=== PATIENT | male | born 1965 | race African-American/Black ===

== ENCOUNTER 2016-12-11 10:05 | Emergency (ER) | payer OTHER ==
[~2016-12-11] VITALS: Ht 188 cm; Wt 96.0 kg
[~2016-12-11 10:05] MED LIST: COMBIH IH; LISI-661 PO; METF1000 PO; METF500T4 PO; NOCURR
[2016-12-11] MEDS ORDERED: ALBU8HFA IH (10:17)
[2016-12-11] MEDS ORDERED: IPRATROPIUM BROMIDE 0.5 MG/2.5 ML NEB SOLUTION NEB ONE (11:00)
[2016-12-11] MEDS ORDERED: ALBUTEROL SULFATE 5 MG/ML 20 ML NEB SOLN [BULK] NEB ONE (11:00)
[2016-12-11] MEDS ORDERED: 0.9% SODIUM CHLORIDE 5 ML NEB SOLUTION NEB ONE (11:02)
[2016-12-11 13:44] VITALS: BP 156/78
== END 2016-12-11 14:17 | disposition home or self-care (01) ==
LOC: EMS 10:06
DX: J18.9 Pneumonia, unspecified organism (principal); J45.909 Unspecified asthma, uncomplicated; E11.9 Type 2 diabetes mellitus without complications; I10 Essential (primary) hypertension
CPT/HCPCS: 71010; 82962; 94644; 99285; J7611

== ENCOUNTER 2017-02-12 16:07 | Emergency (ER) | payer OTHER ==
[~2017-02-12] VITALS: Ht 188 cm; Wt 90.9 kg
[~2017-02-12 16:07] MED LIST changes: +ALBU8HFA IH
[2017-02-12] MEDS ORDERED: BECL8.7A6 PUFF (16:17)
[2017-02-12 17:23] VITALS: BP 140/92
== END 2017-02-12 17:40 | disposition home or self-care (01) ==
LOC: EMS 16:13
DX: B35.3 Tinea pedis (principal); J45.909 Unspecified asthma, uncomplicated; E11.9 Type 2 diabetes mellitus without complications; I10 Essential (primary) hypertension
CPT/HCPCS: 82962; 99283

== ENCOUNTER 2017-05-13 15:51 | Emergency (ER) | payer OTHER ==
[~2017-05-13] VITALS: Ht 189.2 cm; Wt 95.5 kg
[~2017-05-13 15:51] MED LIST changes: -ALBU8HFA IH; +BECL8.7A6 PUFF; -METF1000 PO; -NOCURR
[2017-05-13 16:22] LABS: GLUCOSE,POINT OF CARE 111 MG/DL (70-110)
[2017-05-13 16:36] LABS: BASOPHILS % (AUTO) 4.4 % (0.0-2.0); EOSINOPHILS % (AUTO) 0.6 % (1.0-6.0); HEMATOCRIT 47.7 % (41-53); LYMPHOCYTES # (AUTO) 1.1 K/uL (1.0-4.8); LYMPHOCYTES % (AUTO) 33.4 % (22.0-44.0); MEAN CORPUSCULAR HEMOGLOBIN 32.2 pg (26.0-34.0); MEAN CORPUSCULAR HGB CONC 33.5 G/dL (31.0-37.0); MEAN CORPUSCULAR VOLUME 96 fL (80-100); MONOCYTES # (AUTO) 0.3 K/uL (0.1-1.0); MONOCYTES % (AUTO) 8.9 % (2.0-9.0); NEUTROPHILS # (AUTO) 1.7 K/uL (1.8-7.7); NEUTROPHILS % (AUTO) 52.7 % (40.0-70.0); PLATELET COUNT (AUTO) 169 K/uL (150-450); RED BLOOD CELL COUNT(AUTO) 4.95 MIL/uL (4.50-5.90); RED CELL DISTRIBUTION WIDTH 14.2 % (11.5-14.5); WHITE BLOOD COUNT (AUTO) 3.3 K/uL (4.5-11.0)
[2017-05-13 16:41] LABS: APPEARANCE,URINE CLEAR (CLEAR); GLUCOSE, URINE (UA) NEGATIVE (NEGATIVE); KETONES,URINE 15 mg/dL (NEGATIVE); LEUKOCYTE ESTERASE ,URINE NEGATIVE (NEGATIVE); OCCULT BLOOD,URINE SMALL (NEGATIVE); PROTEIN,URINE SEE CONFIRM (NEGATIVE)
[2017-05-13 16:42] LABS: ADD UA MICROSCOPIC YES
[2017-05-13 16:46] LABS: ANION GAP 8 mmol/L (8-16); CALCIUM, TOTAL 8.1 mg/dL (8.8-10.5); CARBON DIOXIDE 28 mmol/L (22-29); CHLORIDE 102 mmol/L (98-107); CREATININE 1.32 mg/dL (0.60-1.30); GLOMERULAR FILTR. RATE CALC > 60 mL/min (>60); POTASSIUM 3.6 mmol/L (3.5-5.1); SODIUM SERUM 138 mmol/L (136-145); UREA NITROGEN, BLOOD 14 mg/dL (7-18)
[2017-05-13 16:52] LABS: SULFOSALICYLIC ACID,URINE 3+ (Negative)
[2017-05-13 16:54] LABS: HYALINE CASTS, URINE 0-2 /LPF (None Seen)
[2017-05-13 16:55] LABS: SQUAMOUS EPITHELIAL CELL,UR Moderate /LPF (None Seen)
[2017-05-13 16:57] LABS: ALBUMIN 3.3 g/dL (3.4-5.0); BILIRUBIN,TOTAL 2.8 mg/dL (0.1-1.0); TOTAL PROTEIN, SERUM 7.6 g/dL (6.4-8.2)
[2017-05-13 17:20] LABS: ALANINE AMINOTRANSFERASE 3732 U/L (12-78); ASPARTATE AMINOTRANSFERASE 2950 U/L (15-37)
[2017-05-13] MEDS ORDERED: KETOROLAC TROMETHAMINE 30 MG/ML VIAL IVP ONE (20:00)
[2017-05-13] MEDS ORDERED: SODIUM CHLORIDE 0.9% 1,000 ML IV ONE (20:00)
[2017-05-13] MEDS ORDERED: ONDANSETRON HCL 4 MG/2 ML VIAL IVP ONE (20:15)
[2017-05-13 20:40] VITALS: BP 126/81
[2017-05-14 14:14] LABS: HEPATITIS Bs ANTIGEN SCREEN P Negative (Negative); HEPATITIS C AB SCREEN 0.1 s/co ratio (0.0-0.9)
[2017-05-15] MEDS ORDERED: KETO10TA2 PO (08:31)
[2017-05-15] MEDS ORDERED: ONDA4 PO (08:31)
[2017-05-15] MEDS ORDERED: ALBU8.5H IH (08:31)
== END 2017-05-13 20:46 | disposition home or self-care (01) ==
LOC: EMS 15:56
DX: E80.6 Other disorders of bilirubin metabolism (principal); E86.0 Dehydration; B15.9 Hepatitis A without hepatic coma; E11.9 Type 2 diabetes mellitus without complications; J45.909 Unspecified asthma, uncomplicated; I10 Essential (primary) hypertension
CPT/HCPCS: 36415; 80053; 80074; 81001; 82962; 83690; 85025; 87086; 87147; 96361; 96374; 96375; 99284; J1885; J2405; J7030

== ENCOUNTER 2017-07-15 04:40 | Emergency (ER) | payer OTHER ==
[~2017-07-15] VITALS: Ht 188 cm; Wt 95.5 kg
[~2017-07-15 04:40] MED LIST changes: +ALBU8.5H IH; -BECL8.7A6 PUFF; -COMBIH IH; +KETO10TA2 PO; +ONDA4 PO
[2017-07-15] MEDS ORDERED: SIMV-259 PO (04:55)
[2017-07-15] MEDS ORDERED: IPRATROPIUM BROMIDE 0.5 MG/2.5 ML NEB SOLUTION NEB ONE ×3 (05:30→06:30)
[2017-07-15] MEDS ORDERED: ALBUTEROL SULFATE 5 MG/ML 20 ML NEB SOLN [BULK] NEB ONE ×2 (05:30→06:30)
[2017-07-15] MEDS ORDERED: ALBUTEROL SULFATE 2.5 MG/0.5 ML NEB SOLUTION NEB ONE (05:31)
[2017-07-15] MEDS ORDERED: PredniSONE 20 MG TABLET PO ONE (06:30)
[2017-07-15 08:25] VITALS: BP 127/54
[2017-07-15] MEDS ORDERED: ALBUTEROL SULFATE HFA 90 MCG/PUFF 8 GM INHALER IH ONE (08:30)
== END 2017-07-15 08:19 | disposition home or self-care (01) ==
LOC: EMS 04:41
DX: J45.901 Unspecified asthma with (acute) exacerbation (principal); E11.9 Type 2 diabetes mellitus without complications; I10 Essential (primary) hypertension
CPT/HCPCS: 94644; 99285; J7512; J7611; J7613; 94640; J3535

== ENCOUNTER 2017-12-07 05:16 | Emergency (ER) | payer OTHER ==
[~2017-12-07] VITALS: Ht 193 cm; Wt 90.9 kg
[~2017-12-07 05:16] MED LIST changes: -ALBU8.5H IH; -KETO10TA2 PO; -LISI-661 PO; -ONDA4 PO; +SIMV-259 PO
[2017-12-07 05:27] LABS: GLUCOSE,POINT OF CARE 81 MG/DL (70-110)
[2017-12-07] MEDS ORDERED: CYCLOBENZAPRINE HCL 10 MG TABLET PO ONE (05:30)
[2017-12-07] MEDS ORDERED: LIDOCAINE HCL 5% TRANSDERMAL PATCH TD ONE (05:30)
[2017-12-07 05:58] VITALS: BP 140/80
== END 2017-12-07 05:57 | disposition home or self-care (01) ==
LOC: EMS 05:17
DX: S76.012A Strain of muscle, fascia and tendon of left hip, initial encounter (principal); E11.9 Type 2 diabetes mellitus without complications; J45.909 Unspecified asthma, uncomplicated; I10 Essential (primary) hypertension; Z79.899 Other long term (current) drug therapy; W18.39XA Other fall on same level, initial encounter; Y93.89 Activity, other specified; Y92.89 Other specified places as the place of occurrence of the external cause; Y99.8 Other external cause status
CPT/HCPCS: 82962; 99283

== ENCOUNTER 2017-12-11 23:02 | Emergency (ER) | payer OTHER ==
[~2017-12-11] VITALS: Ht 188 cm; Wt 92.0 kg
[2017-12-11] MEDS ORDERED: CYCL10TA7 PO (23:25)
[2017-12-11 23:27] LABS: GLUCOSE,POINT OF CARE 92 MG/DL (70-110)
[2017-12-12 01:10] VITALS: BP 135/81
[2017-12-12] MEDS ORDERED: KETOROLAC TROMETHAMINE 60 MG/2 ML VIAL IM ONE (01:15)
== END 2017-12-12 01:42 | disposition home or self-care (01) ==
LOC: EMS 23:05
DX: M25.552 Pain in left hip (principal); J45.909 Unspecified asthma, uncomplicated; E11.9 Type 2 diabetes mellitus without complications; I10 Essential (primary) hypertension
CPT/HCPCS: 82962; 96372; 99283; J1885

== ENCOUNTER 2018-07-03 04:45 | Emergency (ER) | payer OTHER ==
[~2018-07-03] VITALS: Ht 188 cm; Wt 88.6 kg
[~2018-07-03 04:45] MED LIST changes: +CYCL10TA7 PO; -METF500T4 PO; +METF500T6 PO
[2018-07-03 04:59] LABS: GLUCOSE,POINT OF CARE 111 MG/DL (70-110)
[2018-07-03 05:11] VITALS: BP 143/82
[2018-07-03] MEDS ORDERED: LIDOCAINE HCL 1%/EPI 1:200,000/PF 30 ML VIAL INJ ONE (05:45)
== END 2018-07-03 06:11 | disposition home or self-care (01) ==
LOC: EMS 04:47
DX: S01.01XA Laceration without foreign body of scalp, initial encounter (principal); M20.012 Mallet finger of left finger(s); J45.909 Unspecified asthma, uncomplicated; E11.9 Type 2 diabetes mellitus without complications; I10 Essential (primary) hypertension; F12.90 Cannabis use, unspecified, uncomplicated; Z79.84 Long term (current) use of oral hypoglycemic drugs; V19.9XXA Pedal cyclist (driver) (passenger) injured in unspecified traffic accident, initial encounter; Y93.89 Activity, other specified; Y92.89 Other specified places as the place of occurrence of the external cause; Y99.8 Other external cause status
CPT/HCPCS: 12002; 29130; 73130; 82962; 99284; J3490

== ENCOUNTER 2018-07-18 19:26 | Emergency (ER) | payer OTHER ==
[~2018-07-18] VITALS: Ht 188 cm; Wt 93.2 kg
[~2018-07-18 19:26] MED LIST changes: +METF-960 PO; -METF500T6 PO
[2018-07-18] MEDS ORDERED: ALBU8.5H8 IH (19:46)
[2018-07-18] MEDS ORDERED: AUD NEB (19:46)
[2018-07-18 19:53] LABS: GLUCOSE,POINT OF CARE 115 MG/DL (70-110)
[2018-07-18] MEDS ORDERED: TraMADol HCL 50 MG TABLET PO ONE (21:45)
[2018-07-18] MEDS ORDERED: SULFAMETHOX/TRIMETH DS 800-160 MG/TABLET PO ONE (21:45)
[2018-07-18 22:00] VITALS: BP 143/89
== END 2018-07-18 22:07 | disposition home or self-care (01) ==
LOC: EMS 19:28
DX: L03.113 Cellulitis of right upper limb (principal); M79.89 Other specified soft tissue disorders; J45.909 Unspecified asthma, uncomplicated; E11.9 Type 2 diabetes mellitus without complications; I10 Essential (primary) hypertension; F12.90 Cannabis use, unspecified, uncomplicated; Z48.02 Encounter for removal of sutures; Z79.84 Long term (current) use of oral hypoglycemic drugs
CPT/HCPCS: 99284

== ENCOUNTER 2019-02-05 18:55 | Emergency (ER) | payer MEDICAID, OTHER ==
[~2019-02-05] VITALS: Ht 188 cm; Wt 86.4 kg
[~2019-02-05 18:55] MED LIST changes: +ALBU8.5H8 IH; +AUD NEB; -SIMV-259 PO
[2019-02-05] MEDS ORDERED: ALBUTEROL SULFATE 2.5 MG/0.5 ML NEB SOLUTION NEB ONE (19:00)
[2019-02-05] MEDS ORDERED: IPRATROPIUM BROMIDE 0.5 MG/2.5 ML NEB SOLUTION NEB ONE ×4 (19:00→22:15)
[2019-02-05] MEDS ORDERED: LEVALBUTEROL HCL 1.25 MG/0.5 ML NEB SOLUTION NEB ONE ×2 (19:15→22:15)
[2019-02-05 19:18] LABS: GLUCOSE,POINT OF CARE 137 MG/DL (70-110)
[2019-02-05 19:37] LABS: BASOPHILS % (AUTO) 0.3 % (0.0-2.0); EOSINOPHILS % (AUTO) 0.6 % (1.0-6.0); HEMATOCRIT 41.3 % (41-53); HEMOGLOBIN 14.1 g/dL (13.5-17.5); LYMPHOCYTES # (AUTO) 0.3 K/uL (1.0-4.8); LYMPHOCYTES % (AUTO) 4.4 % (22.0-44.0); MEAN CORPUSCULAR HEMOGLOBIN 33.1 pg (26.0-34.0); MEAN CORPUSCULAR HGB CONC 34.1 G/dL (31.0-37.0); MEAN CORPUSCULAR VOLUME 97 fL (80-100); MONOCYTES # (AUTO) 0.6 K/uL (0.1-1.0); MONOCYTES % (AUTO) 7.3 % (2.0-9.0); NEUTROPHILS # (AUTO) 6.7 K/uL (1.8-7.7); PLATELET COUNT (AUTO) 203 K/uL (150-450); RED BLOOD CELL COUNT(AUTO) 4.27 MIL/uL (4.50-5.90); RED CELL DISTRIBUTION WIDTH 13.8 % (11.5-14.5)
[2019-02-05 19:59] LABS: ANION GAP 11 mmol/L (8-16); CALCIUM, TOTAL 8.8 mg/dL (8.8-10.5); CARBON DIOXIDE 25 mmol/L (22-29); CHLORIDE 102 mmol/L (98-107); CREATININE 1.07 mg/dL (0.60-1.30); GLOMERULAR FILTR. RATE CALC > 60 mL/min (>60); GLUCOSE,RANDOM 119 mg/dL (70-110); POTASSIUM 3.8 mmol/L (3.5-5.1); SODIUM SERUM 138 mmol/L (136-145); UREA NITROGEN, BLOOD 13 mg/dL (7-18)
[2019-02-05 20:05] LABS: ALANINE AMINOTRANSFERASE 34 U/L (12-78); ALBUMIN 3.7 g/dL (3.4-5.0); ALKALINE PHOSPHATASE 76 U/L (46-116); ASPARTATE AMINOTRANSFERASE 25 U/L (15-37); NEUTROPHILS % (AUTO) 87.4 % (40.0-70.0); TOTAL PROTEIN, SERUM 7.4 g/dL (6.4-8.2)
[2019-02-05] MEDS ORDERED: MethylPREDNISolone SOD SUCC 125 MG/2 ML VIAL IVP ONE (20:15)
[2019-02-05 22:50] VITALS: BP 135/83
== END 2019-02-05 23:01 | disposition home or self-care (01) ==
LOC: EMS 18:57
DX: J45.909 Unspecified asthma, uncomplicated (principal); I10 Essential (primary) hypertension; E11.9 Type 2 diabetes mellitus without complications; F12.90 Cannabis use, unspecified, uncomplicated; Z79.84 Long term (current) use of oral hypoglycemic drugs
CPT/HCPCS: 36415; 71045; 80053; 82962; 84484; 85025; 93005; 94640; 96374; 99284; J2930

== ENCOUNTER 2020-08-23 18:32 | Emergency (ER) | payer MEDICAID ==
[~2020-08-23] VITALS: Ht 188 cm; Wt 106.8 kg
[2020-08-23] MEDS ORDERED: CYCLOBENZAPRINE HCL 10 MG TABLET PO ONE (19:15)
[2020-08-23 20:15] VITALS: BP 128/82
== END 2020-08-23 20:30 | disposition home or self-care (01) ==
LOC: EMS 18:32
DX: M54.5 Low back pain (principal)
CPT/HCPCS: 72100

== ENCOUNTER 2020-09-05 13:19 | Emergency (ER) | payer MEDICAID ==
[~2020-09-05] VITALS: Ht 188 cm; Wt 108.2 kg
[2020-09-05] MEDS ORDERED: ACETAMINOPHEN 500 MG TABLET PO ONE (14:15)
[2020-09-05] MEDS ORDERED: ALBUTEROL SULFATE HFA 90 MCG/PUFF 8 GM INHALER IH ONE (14:15)
[2020-09-05] MEDS ORDERED: IPRATROPIUM BROMIDE 0.5 MG/2.5 ML NEB SOLUTION NEB ONE (14:15)
[2020-09-05] MEDS ORDERED: ALBUTEROL SULFATE 2.5 MG/0.5 ML NEB SOLUTION NEB ONE ×2 (14:15→16:05)
[2020-09-05] MEDS ORDERED: MethylPREDNISolone SOD SUCC 125 MG/2 ML VIAL IVP ONE (14:15)
[2020-09-05] MEDS ORDERED: 0.9% SODIUM CHLORIDE 5 ML NEB SOLUTION NEB ONE ×2 (14:28→16:22)
[2020-09-05 14:54] LABS: BASOPHILS % (AUTO) 0.9 % (0.0-2.0); EOSINOPHILS % (AUTO) 8.7 % (1.0-6.0); HEMATOCRIT 41.2 % (41-53); HEMOGLOBIN 13.6 g/dL (13.5-17.5); LYMPHOCYTES # (AUTO) 1.7 K/uL (1.0-4.8); LYMPHOCYTES % (AUTO) 35.4 % (22.0-44.0); MEAN CORPUSCULAR HEMOGLOBIN 31.9 pg (26.0-34.0); MEAN CORPUSCULAR HGB CONC 32.9 G/dL (31.0-37.0); MEAN CORPUSCULAR VOLUME 97 fL (80-100); MONOCYTES # (AUTO) 0.5 K/uL (0.1-1.0); NEUTROPHILS # (AUTO) 2.1 K/uL (1.8-7.7); PLATELET COUNT (AUTO) 214 K/uL (150-450); RED BLOOD CELL COUNT(AUTO) 4.25 MIL/uL (4.50-5.90)
[2020-09-05 15:12] LABS: ANION GAP 9 mmol/L (8-16); CALCIUM, TOTAL 8.6 mg/dL (8.8-10.5); CARBON DIOXIDE 25 mmol/L (22-29); CHLORIDE 103 mmol/L (98-107); CREATININE 1.14 mg/dL (0.60-1.30); GLOMERULAR FILTR. RATE CALC > 60 mL/min (>60); GLUCOSE,RANDOM 91 mg/dL (70-110); POTASSIUM 4.4 mmol/L (3.5-5.1); SODIUM SERUM 137 mmol/L (136-145); UREA NITROGEN, BLOOD 16 mg/dL (7-18)
[2020-09-05 15:40] LABS: ALANINE AMINOTRANSFERASE 33 U/L (12-78); ALBUMIN 3.5 g/dL (3.4-5.0); ALKALINE PHOSPHATASE 63 U/L (46-116); ASPARTATE AMINOTRANSFERASE 25 U/L (15-37); BILIRUBIN,TOTAL 0.7 mg/dL (0.1-1.0); TOTAL PROTEIN, SERUM 7.1 g/dL (6.4-8.2)
[2020-09-05 15:41] LABS: CREATINE KINASE, TOTAL ONLY 1045 U/L (39-308)
[2020-09-05 15:46] LABS: COVID AG,FIA SOURCE NASOPHARYNGEAL
[2020-09-05 16:09] LABS: B-TYPE NATRIURETIC PEPTIDE 6 pg/mL (0-100)
[2020-09-05 16:15] VITALS: BP 145/88
[2020-09-05] MEDS ORDERED: SODIUM CHLORIDE 0.9% 1,000 ML IV ONE (16:15)
== END 2020-09-05 18:21 | disposition left against medical advice (07) ==
LOC: EMS 13:21
DX: J45.909 Unspecified asthma, uncomplicated (principal); M62.82 Rhabdomyolysis
CPT/HCPCS: 71045; 80053; 82550; 83880; 84484; 85025; 87426; 93005 ×2; 94640; 96361; 96374; 99285; J2930; J3535; 36415-L1; 36415-TC; J7613

== ENCOUNTER 2020-09-10 23:38 | Emergency (ER) | payer MEDICAID ==
[~2020-09-10] VITALS: Ht 188 cm; Wt 108.2 kg
[2020-09-11] MEDS ORDERED: PredniSONE 20 MG TABLET PO ONE (00:15)
[2020-09-11] MEDS ORDERED: ALBUTEROL SULFATE 5 MG/ML 20 ML NEB SOLN [BULK] NEB ONE ×2 (00:15→01:15)
[2020-09-11 00:26] LABS: BASOPHILS % (AUTO) 0.4 % (0.0-2.0); EOSINOPHILS % (AUTO) 7.1 % (1.0-6.0); HEMATOCRIT 39.6 % (41-53); HEMOGLOBIN 13.5 g/dL (13.5-17.5); LYMPHOCYTES # (AUTO) 1.6 K/uL (1.0-4.8); LYMPHOCYTES % (AUTO) 27.3 % (22.0-44.0); MEAN CORPUSCULAR HEMOGLOBIN 32.8 pg (26.0-34.0); MEAN CORPUSCULAR VOLUME 96 fL (80-100); MONOCYTES # (AUTO) 0.6 K/uL (0.1-1.0); MONOCYTES % (AUTO) 9.6 % (2.0-9.0); NEUTROPHILS # (AUTO) 3.3 K/uL (1.8-7.7); NEUTROPHILS % (AUTO) 55.6 % (40.0-70.0); PLATELET COUNT (AUTO) 199 K/uL (150-450); RED BLOOD CELL COUNT(AUTO) 4.11 MIL/uL (4.50-5.90); RED CELL DISTRIBUTION WIDTH 13.9 % (11.5-14.5)
[2020-09-11 00:34] LABS: ANION GAP 9 mmol/L (8-16); CALCIUM, TOTAL 8.7 mg/dL (8.8-10.5); CARBON DIOXIDE 27 mmol/L (22-29); CHLORIDE 102 mmol/L (98-107); CREATININE 1.28 mg/dL (0.60-1.30); GLOMERULAR FILTR. RATE CALC > 60 mL/min (>60); GLUCOSE,RANDOM 106 mg/dL (70-110); POTASSIUM 3.6 mmol/L (3.5-5.1); SODIUM SERUM 138 mmol/L (136-145); UREA NITROGEN, BLOOD 13 mg/dL (7-18)
[2020-09-11 00:39] LABS: ALANINE AMINOTRANSFERASE 39 U/L (12-78); ALBUMIN 3.4 g/dL (3.4-5.0); ALKALINE PHOSPHATASE 63 U/L (46-116); ASPARTATE AMINOTRANSFERASE 20 U/L (15-37); BILIRUBIN,TOTAL 0.4 mg/dL (0.1-1.0); TOTAL PROTEIN, SERUM 6.7 g/dL (6.4-8.2)
[2020-09-11] MEDS ORDERED: 0.9% SODIUM CHLORIDE 5 ML NEB SOLUTION NEB ONE (00:39)
[2020-09-11] MEDS ORDERED: 0.9% SODIUM CHLORIDE 15 ML NEB SOLUTION NEB ONE (01:06)
[2020-09-11] MEDS ORDERED: IPRATROPIUM BROMIDE 0.5 MG/2.5 ML NEB SOLUTION NEB ONE (01:15)
[2020-09-11 02:44] VITALS: BP 125/81
== END 2020-09-11 02:50 | disposition home or self-care (01) ==
LOC: EMS 23:38
DX: J45.901 Unspecified asthma with (acute) exacerbation (principal); E11.9 Type 2 diabetes mellitus without complications; I10 Essential (primary) hypertension; F12.90 Cannabis use, unspecified, uncomplicated; Z79.84 Long term (current) use of oral hypoglycemic drugs
CPT/HCPCS: 36415; 80053; 84484; 85025; 93005; 94640; 94644; 99285; J7512

== ENCOUNTER 2020-10-19 10:35 | Emergency (ER) | payer MEDICAID ==
[~2020-10-19] VITALS: Ht 185.4 cm; Wt 100.0 kg
[2020-10-19] MEDS ORDERED: LISI-660 PO (10:44)
[2020-10-19 10:56] LABS: GLUCOSE,POINT OF CARE 137 MG/DL (70-110)
[2020-10-19] MEDS ORDERED: METHOCARBAMOL 500 MG TABLET PO ONE (11:45)
[2020-10-19] MEDS ORDERED: KETOROLAC TROMETHAMINE 60 MG/2 ML VIAL IM ONE (11:45)
[2020-10-19 12:25] VITALS: BP 152/104
== END 2020-10-19 12:28 | disposition home or self-care (01) ==
LOC: EMS 10:37
DX: M54.42 Lumbago with sciatica, left side (principal); M79.605 Pain in left leg; J45.909 Unspecified asthma, uncomplicated; E11.9 Type 2 diabetes mellitus without complications; I10 Essential (primary) hypertension; F12.90 Cannabis use, unspecified, uncomplicated; Z79.84 Long term (current) use of oral hypoglycemic drugs
CPT/HCPCS: 82962; 96372; 99283; J1885

== ENCOUNTER 2021-01-11 07:30 | Emergency (ER) | payer MEDICAID, OTHER ==
[~2021-01-11] VITALS: Ht 188 cm; Wt 111.4 kg
[~2021-01-11 07:30] MED LIST changes: +LISI-892 PO
[2021-01-11 07:59] LABS: GLUCOSE,POINT OF CARE 108 MG/DL (70-110)
[2021-01-11] MEDS ORDERED: ALBUTEROL SULFATE 5 MG/ML 20 ML NEB SOLN [BULK] NEB ONE (08:00)
[2021-01-11] MEDS ORDERED: MethylPREDNISolone SOD SUCC 125 MG/2 ML VIAL IVP ONE (08:00)
[2021-01-11] MEDS ORDERED: IPRATROPIUM BROMIDE 0.5 MG/2.5 ML NEB SOLUTION NEB ONE (08:00)
[2021-01-11] MEDS ORDERED: PredniSONE 20 MG TABLET PO ONE (09:30)
[2021-01-11 09:41] VITALS: BP 143/91
[2021-01-11] MEDS ORDERED: ALBUTEROL SULFATE HFA 90 MCG/PUFF 8 GM INHALER IH ONE (10:15)
== END 2021-01-11 10:25 | disposition home or self-care (01) ==
LOC: EMS 07:36
DX: J45.901 Unspecified asthma with (acute) exacerbation (principal); F12.90 Cannabis use, unspecified, uncomplicated; E11.9 Type 2 diabetes mellitus without complications; I10 Essential (primary) hypertension
CPT/HCPCS: 71045; 82962; 93005; 94644; 99285; J2930; J7512; J3535; J7611

== ENCOUNTER 2021-02-24 06:17 | Emergency (ER) | payer OTHER ==
[~2021-02-24] VITALS: Ht 189.2 cm; Wt 109.5 kg
[2021-02-24 06:22] VITALS: BP 140/70
[2021-02-24] MEDS ORDERED: LIDOCAINE/PF 1% 2 ML VIAL IM ONE (07:00)
[2021-02-24] MEDS ORDERED: CefTRIAXone SODIUM 1 GM/VIAL IM ONE (07:00)
[2021-02-24] MEDS ORDERED: AZITHROMYCIN 500 MG TABLET PO ONE (07:00)
== END 2021-02-24 07:29 | disposition home or self-care (01) ==
LOC: EMS 06:20
DX: N34.2 Other urethritis (principal); I10 Essential (primary) hypertension; E11.9 Type 2 diabetes mellitus without complications; J45.909 Unspecified asthma, uncomplicated
CPT/HCPCS: 82962; 87491; 87591; 96372; 99283; A9575; J0696; J3490

== ENCOUNTER 2021-03-10 09:34 | Emergency (ER) | payer OTHER ==
[~2021-03-10] VITALS: Ht 188 cm; Wt 110.9 kg
[2021-03-10 10:38] VITALS: BP 131/83
[2021-03-10] MEDS ORDERED: ValACYclovir HCL 500 MG TABLET PO ONE (10:45)
== END 2021-03-10 11:15 | disposition home or self-care (01) ==
LOC: EMS 09:39
DX: B00.89 Other herpesviral infection (principal); E11.9 Type 2 diabetes mellitus without complications; I10 Essential (primary) hypertension; J45.909 Unspecified asthma, uncomplicated; F12.90 Cannabis use, unspecified, uncomplicated
CPT/HCPCS: 82962; 99283

== ENCOUNTER 2021-04-29 07:39 | Emergency (ER) | payer OTHER ==
[~2021-04-29] VITALS: Ht 188 cm; Wt 112.7 kg
[2021-04-29 11:00] VITALS: BP 141/103
== END 2021-04-29 11:16 | disposition home or self-care (01) ==
LOC: EMS 07:41
DX: L98.9 Disorder of the skin and subcutaneous tissue, unspecified (principal); M25.571 Pain in right ankle and joints of right foot; J45.909 Unspecified asthma, uncomplicated; E11.9 Type 2 diabetes mellitus without complications; I10 Essential (primary) hypertension; F12.90 Cannabis use, unspecified, uncomplicated; Z79.899 Other long term (current) drug therapy
CPT/HCPCS: 82962; 99283

== ENCOUNTER 2021-05-09 11:39 | Emergency (ER) | payer OTHER ==
[~2021-05-09] VITALS: Ht 188 cm; Wt 112.7 kg
[2021-05-09] MEDS ORDERED: ALBUTEROL SULFATE 5 MG/ML 20 ML NEB SOLN [BULK] NEB ONE (12:15)
[2021-05-09] MEDS ORDERED: PredniSONE 20 MG TABLET PO ONE (12:15)
[2021-05-09 12:49] LABS: BASOPHILS % (AUTO) 0.8 % (0.0-2.0); EOSINOPHILS % (AUTO) 5.8 % (1.0-6.0); HEMATOCRIT 40.7 % (41-53); HEMOGLOBIN 13.3 g/dL (13.5-17.5); LYMPHOCYTES # (AUTO) 1.2 K/uL (1.0-4.8); LYMPHOCYTES % (AUTO) 28.4 % (22.0-44.0); MEAN CORPUSCULAR HEMOGLOBIN 31.1 pg (26.0-34.0); MEAN CORPUSCULAR HGB CONC 32.7 G/dL (31.0-37.0); MEAN CORPUSCULAR VOLUME 95 fL (80-100); MONOCYTES # (AUTO) 0.4 K/uL (0.1-1.0); MONOCYTES % (AUTO) 10.2 % (2.0-9.0); NEUTROPHILS # (AUTO) 2.4 K/uL (1.8-7.7); NEUTROPHILS % (AUTO) 54.8 % (40.0-70.0); PLATELET COUNT (AUTO) 220 K/uL (150-450); RED BLOOD CELL COUNT(AUTO) 4.27 MIL/uL (4.50-5.90); RED CELL DISTRIBUTION WIDTH 13.9 % (11.5-14.5)
[2021-05-09 12:56] LABS: ANION GAP 9 mmol/L (8-16); CALCIUM, TOTAL 8.8 mg/dL (8.8-10.5); CARBON DIOXIDE 25 mmol/L (22-29); CHLORIDE 102 mmol/L (98-107); CREATININE 1.16 mg/dL (0.60-1.30); GLOMERULAR FILTR. RATE CALC > 60 mL/min (>60); GLUCOSE,RANDOM 129 mg/dL (70-110); POTASSIUM 3.7 mmol/L (3.5-5.1); SODIUM SERUM 136 mmol/L (136-145); UREA NITROGEN, BLOOD 16 mg/dL (7-18)
[2021-05-09 13:24] VITALS: BP 140/77
[2021-05-09] MEDS ORDERED: ALBUTEROL SULFATE HFA 90 MCG/PUFF 8 GM INHALER IH ONE (14:00)
== END 2021-05-09 14:31 | disposition home or self-care (01) ==
LOC: EMS 11:53
DX: J45.901 Unspecified asthma with (acute) exacerbation (principal); E11.9 Type 2 diabetes mellitus without complications; I10 Essential (primary) hypertension; F12.90 Cannabis use, unspecified, uncomplicated
CPT/HCPCS: 36415; 71045; 80048; 84484; 85025; 93005; 94640; 94644; 99285; J7512; J3535

== ENCOUNTER 2021-06-17 10:23 | Emergency (ER) | payer OTHER ==
[~2021-06-17] VITALS: Ht 188 cm; Wt 112.7 kg
[2021-06-17] MEDS ORDERED: FLUT1AER4 IH (14:29)
[2021-06-17] MEDS ORDERED: GABA-1181 PO (14:29)
[2021-06-17] MEDS ORDERED: MONT10TA32 PO (14:29)
[2021-06-17] MEDS ORDERED: ATOR10TA69 PO (14:29)
[2021-06-17] MEDS ORDERED: ACET-66 PO (14:29)
[2021-06-17] MEDS ORDERED: IBUPROFEN 600 MG TABLET PO ONE (14:30)
[2021-06-17 15:53] VITALS: BP 118/85
== END 2021-06-17 16:20 | disposition home or self-care (01) ==
LOC: EMS 10:23
DX: S80.01XA Contusion of right knee, initial encounter (principal); J45.909 Unspecified asthma, uncomplicated; E11.9 Type 2 diabetes mellitus without complications; I10 Essential (primary) hypertension; F12.90 Cannabis use, unspecified, uncomplicated; Z79.899 Other long term (current) drug therapy; Z79.84 Long term (current) use of oral hypoglycemic drugs; V19.9XXA Pedal cyclist (driver) (passenger) injured in unspecified traffic accident, initial encounter; Y93.89 Activity, other specified; Y92.89 Other specified places as the place of occurrence of the external cause; Y99.8 Other external cause status
CPT/HCPCS: 82962; 99283

== ENCOUNTER 2021-06-20 05:00 | Emergency (ER) | payer OTHER ==
[~2021-06-20] VITALS: Ht 188 cm; Wt 118.2 kg
[~2021-06-20 05:00] MED LIST changes: +ACET-66 PO; +ATOR10TA69 PO; +FLUT1AER4 IH; +GABA-1181 PO; +MONT10TA32 PO
[2021-06-20] MEDS ORDERED: IBUPROFEN 600 MG TABLET PO ONE (06:45)
[2021-06-20 07:35] VITALS: BP 134/79
== END 2021-06-20 07:39 | disposition home or self-care (01) ==
LOC: EMS 05:00
DX: S46.811A Strain of other muscles, fascia and tendons at shoulder and upper arm level, right arm, initial encounter (principal); E11.9 Type 2 diabetes mellitus without complications; I10 Essential (primary) hypertension; J45.909 Unspecified asthma, uncomplicated; F12.90 Cannabis use, unspecified, uncomplicated; W19.XXXA Unspecified fall, initial encounter; Y93.89 Activity, other specified; Y92.89 Other specified places as the place of occurrence of the external cause; Y99.8 Other external cause status
CPT/HCPCS: 71046; 99284

== ENCOUNTER 2021-06-24 09:13 | Emergency (ER) | payer OTHER ==
[~2021-06-24] VITALS: Ht 188 cm; Wt 118.2 kg
[2021-06-24 09:41] LABS: HEMATOCRIT 41.1 % (41-53); LYMPHOCYTES # (AUTO) 1.4 K/uL (1.0-4.8); NEUTROPHILS # (AUTO) 1.6 K/uL (1.8-7.7)
[2021-06-24 09:46] LABS: BASOPHILS % (AUTO) 0.6 % (0.0-2.0); EOSINOPHILS % (AUTO) 5.3 % (1.0-6.0); HEMOGLOBIN 13.5 g/dL (13.5-17.5); LYMPHOCYTES % (AUTO) 37.4 % (22.0-44.0); MEAN CORPUSCULAR HEMOGLOBIN 31.5 pg (26.0-34.0); MEAN CORPUSCULAR HGB CONC 32.9 G/dL (31.0-37.0); MEAN CORPUSCULAR VOLUME 96 fL (80-100); MONOCYTES # (AUTO) 0.5 K/uL (0.1-1.0); MONOCYTES % (AUTO) 12.6 % (2.0-9.0); NEUTROPHILS % (AUTO) 44.1 % (40.0-70.0); PLATELET COUNT (AUTO) 224 K/uL (150-450); RED BLOOD CELL COUNT(AUTO) 4.29 MIL/uL (4.50-5.90); RED CELL DISTRIBUTION WIDTH 13.7 % (11.5-14.5)
[2021-06-24 09:59] LABS: ANION GAP 6 mmol/L (8-16); CALCIUM, TOTAL 8.1 mg/dL (8.8-10.5); CARBON DIOXIDE 27 mmol/L (22-29); CHLORIDE 104 mmol/L (98-107); CREATININE 1.33 mg/dL (0.60-1.30); GLOMERULAR FILTR. RATE CALC > 60 mL/min (>60); GLUCOSE,RANDOM 114 mg/dL (70-110); POTASSIUM 3.9 mmol/L (3.5-5.1); SODIUM SERUM 137 mmol/L (136-145); UREA NITROGEN, BLOOD 15 mg/dL (7-18)
[2021-06-24 10:03] LABS: ALANINE AMINOTRANSFERASE 28 U/L (12-78); ALBUMIN 3.4 g/dL (3.4-5.0); ALKALINE PHOSPHATASE 68 U/L (46-116); ASPARTATE AMINOTRANSFERASE 22 U/L (15-37); BILIRUBIN,TOTAL 0.4 mg/dL (0.1-1.0); TOTAL PROTEIN, SERUM 7.2 g/dL (6.4-8.2)
[2021-06-24] MEDS ORDERED: IBUPROFEN 600 MG TABLET PO ONE (11:15)
[2021-06-24 11:26] VITALS: BP 147/94
== END 2021-06-24 11:34 | disposition home or self-care (01) ==
LOC: EMS 09:13
DX: S20.211A Contusion of right front wall of thorax, initial encounter (principal); E11.9 Type 2 diabetes mellitus without complications; I10 Essential (primary) hypertension; F12.90 Cannabis use, unspecified, uncomplicated; Z79.84 Long term (current) use of oral hypoglycemic drugs; Z79.899 Other long term (current) drug therapy; W05.1XXA Fall from non-moving nonmotorized scooter, initial encounter; Y93.89 Activity, other specified; Y92.89 Other specified places as the place of occurrence of the external cause; Y99.8 Other external cause status
CPT/HCPCS: 71045; 80053; 84484; 85025; 93005; 99285; 36415-L1; 36415-TC

== ENCOUNTER 2021-07-12 14:09 | Emergency (ER) | payer OTHER ==
[~2021-07-12] VITALS: Ht 188 cm; Wt 127.3 kg
[2021-07-12 16:17] LABS: BASOPHILS % (AUTO) 0.5 % (0.0-2.0); EOSINOPHILS % (AUTO) 4.2 % (1.0-6.0); HEMATOCRIT 40.7 % (41-53); HEMOGLOBIN 13.5 g/dL (13.5-17.5); LYMPHOCYTES # (AUTO) 1.6 K/uL (1.0-4.8); LYMPHOCYTES % (AUTO) 40.4 % (22.0-44.0); MEAN CORPUSCULAR HEMOGLOBIN 31.2 pg (26.0-34.0); MEAN CORPUSCULAR HGB CONC 33.1 G/dL (31.0-37.0); MEAN CORPUSCULAR VOLUME 94 fL (80-100); MONOCYTES # (AUTO) 0.5 K/uL (0.1-1.0); MONOCYTES % (AUTO) 13.2 % (2.0-9.0); NEUTROPHILS # (AUTO) 1.7 K/uL (1.8-7.7); NEUTROPHILS % (AUTO) 41.7 % (40.0-70.0); PLATELET COUNT (AUTO) 196 K/uL (150-450); RED BLOOD CELL COUNT(AUTO) 4.32 MIL/uL (4.50-5.90); RED CELL DISTRIBUTION WIDTH 13.9 % (11.5-14.5)
[2021-07-12 16:31] LABS: ANION GAP 8 mmol/L (8-16); CALCIUM, TOTAL 8.4 mg/dL (8.8-10.5); CARBON DIOXIDE 25 mmol/L (22-29); CHLORIDE 107 mmol/L (98-107); CREATININE 1.03 mg/dL (0.60-1.30); GLOMERULAR FILTR. RATE CALC > 60 mL/min (>60); GLUCOSE,RANDOM 82 mg/dL (70-110); SODIUM SERUM 140 mmol/L (136-145); UREA NITROGEN, BLOOD 13 mg/dL (7-18)
[2021-07-12 16:37] LABS: ALANINE AMINOTRANSFERASE 36 U/L (12-78); ALBUMIN 3.3 g/dL (3.4-5.0); ALKALINE PHOSPHATASE 70 U/L (46-116); ASPARTATE AMINOTRANSFERASE 24 U/L (15-37); BILIRUBIN,TOTAL 0.5 mg/dL (0.1-1.0); TOTAL PROTEIN, SERUM 7.2 g/dL (6.4-8.2)
[2021-07-12 16:44] LABS: B-TYPE NATRIURETIC PEPTIDE 14 pg/mL (0-100)
[2021-07-12 17:50] VITALS: BP 140/83
== END 2021-07-12 19:30 | disposition home or self-care (01) ==
LOC: EMS 14:12
DX: R60.0 Localized edema (principal); J45.909 Unspecified asthma, uncomplicated; E11.9 Type 2 diabetes mellitus without complications; I10 Essential (primary) hypertension; F12.90 Cannabis use, unspecified, uncomplicated; Z79.84 Long term (current) use of oral hypoglycemic drugs; Z79.899 Other long term (current) drug therapy
CPT/HCPCS: 80053; 82962; 83880; 85025; 93971; 99284

== ENCOUNTER 2021-09-03 12:02 | Emergency (ER) | payer OTHER ==
[~2021-09-03] VITALS: Ht 188 cm; Wt 115.9 kg
[2021-09-03 12:18] LABS: GLUCOSE,POINT OF CARE 107 MG/DL (70-110)
[2021-09-03 13:19] LABS: COVID AG,FIA SOURCE NASOPHARYNGEAL
[2021-09-03] MEDS ORDERED: ALBUTEROL SULFATE HFA 90 MCG/PUFF 8 GM INHALER IH ONE (13:45)
[2021-09-03 14:41] VITALS: BP 121/73
== END 2021-09-03 14:57 | disposition home or self-care (01) ==
LOC: EMS 12:02
DX: J40 Bronchitis, not specified as acute or chronic (principal); Z20.822 Contact with and (suspected) exposure to COVID-19
CPT/HCPCS: 71045; 82962; 87426; 94640; 99284; U0003; J3535

== ENCOUNTER 2021-11-17 01:58 | Emergency (ER) | payer OTHER ==
[~2021-11-17] VITALS: Ht 188 cm; Wt 115.9 kg
[~2021-11-17 01:58] MED LIST changes: +CYCL10TA16 PO; -CYCL10TA7 PO; +METF-1211 PO; -METF-960 PO; +MONT-40 PO; -MONT10TA32 PO
[2021-11-17] MEDS ORDERED: ALBUTEROL SULFATE HFA 90 MCG/PUFF 8 GM INHALER IH ONE (02:15)
[2021-11-17] MEDS ORDERED: PredniSONE 20 MG TABLET PO ONE (02:45)
[2021-11-17] MEDS ORDERED: IPRATROPIUM BROMIDE HFA 17 MCG/PUFF 12.9 GM INHALER IH ONE (02:45)
[2021-11-17 03:09] LABS: COVID AG,FIA SOURCE NASOPHARYNGEAL
[2021-11-17 03:34] LABS: INFLUENZA TYPE A NEGATIVE FOR TYPE A (NEGATIVE); INFLUENZA TYPE B NEGATIVE FOR TYPE B (NEGATIVE)
[2021-11-17 03:55] VITALS: BP 154/98
== END 2021-11-17 04:00 | disposition home or self-care (01) ==
LOC: EMS 02:00
DX: J45.901 Unspecified asthma with (acute) exacerbation (principal); E11.9 Type 2 diabetes mellitus without complications; I10 Essential (primary) hypertension; Z20.822 Contact with and (suspected) exposure to COVID-19; Z79.84 Long term (current) use of oral hypoglycemic drugs
CPT/HCPCS: 71045; 87426; 87804; 94640; 99284; J7512; U0003; J3535

== ENCOUNTER 2021-11-19 22:25 | Emergency (ER) | payer OTHER ==
[~2021-11-19] VITALS: Ht 188 cm; Wt 113.6 kg
[2021-11-19 22:26] VITALS: BP 156/94
== END 2021-11-20 00:20 | disposition home or self-care (01) ==
LOC: EMS 22:27
DX: Z20.822 Contact with and (suspected) exposure to COVID-19 (principal); J45.909 Unspecified asthma, uncomplicated; E11.9 Type 2 diabetes mellitus without complications; I10 Essential (primary) hypertension; Z79.899 Other long term (current) drug therapy; Z79.84 Long term (current) use of oral hypoglycemic drugs
CPT/HCPCS: 99283; U0003

== ENCOUNTER 2021-12-07 10:08 | Emergency (ER) | payer OTHER ==
[~2021-12-07] VITALS: Ht 188 cm; Wt 118.2 kg
[2021-12-07] MEDS ORDERED: IBUPROFEN 400 MG TABLET PO ONE (11:15)
[2021-12-07] MEDS ORDERED: ACETAMINOPHEN 325 MG TABLET PO ONE (11:15)
[2021-12-07] MEDS ORDERED: ALBUTEROL SULFATE HFA 90 MCG/PUFF 8 GM INHALER IH ONE (11:45)
[2021-12-07 11:54] LABS: COVID AG,FIA SOURCE NASOPHARYNGEAL
[2021-12-07 12:20] LABS: INFLUENZA TYPE A NEGATIVE FOR TYPE A (NEGATIVE); INFLUENZA TYPE B NEGATIVE FOR TYPE B (NEGATIVE)
[2021-12-07 12:23] VITALS: BP 138/71
== END 2021-12-07 13:04 | disposition home or self-care (01) ==
LOC: EMS 10:12
DX: U07.1 COVID-19 (principal); J45.909 Unspecified asthma, uncomplicated; I10 Essential (primary) hypertension; E11.9 Type 2 diabetes mellitus without complications; Z79.84 Long term (current) use of oral hypoglycemic drugs; Z79.899 Other long term (current) drug therapy
CPT/HCPCS: 87426; 87804; 94640; 99283; U0003; J3535

== ENCOUNTER 2022-05-27 00:24 | Emergency (ER) | payer OTHER ==
[~2022-05-27] VITALS: Ht 190.5 cm; Wt 113.6 kg
[2022-05-27] MEDS ORDERED: METR500 PO (01:59)
[2022-05-27 02:02] VITALS: BP 135/85
== END 2022-05-27 02:04 | disposition home or self-care (01) ==
LOC: EMS 00:25
DX: A59.9 Trichomoniasis, unspecified (principal); E11.9 Type 2 diabetes mellitus without complications; I10 Essential (primary) hypertension; J45.909 Unspecified asthma, uncomplicated
CPT/HCPCS: 87491; 87591; 99283

== ENCOUNTER 2022-07-07 14:02 | Emergency (ER) | payer OTHER ==
[~2022-07-07] VITALS: Ht 188 cm; Wt 104.5 kg
[~2022-07-07 14:02] MED LIST changes: +METR500 PO
[2022-07-07 14:17] VITALS: BP 136/74
== END 2022-07-07 14:35 | disposition home or self-care (01) ==
LOC: EMS 14:02
DX: T16.1XXA Foreign body in right ear, initial encounter (principal); Z87.821 Personal history of retained foreign body fully removed; J45.909 Unspecified asthma, uncomplicated; E11.9 Type 2 diabetes mellitus without complications; I10 Essential (primary) hypertension; G62.9 Polyneuropathy, unspecified; X58.XXXA Exposure to other specified factors, initial encounter; Y93.89 Activity, other specified; Y92.89 Other specified places as the place of occurrence of the external cause; Y99.8 Other external cause status
CPT/HCPCS: 69200; 99284; Z7502

== ENCOUNTER 2022-07-26 17:28 | Emergency (ER) | payer OTHER ==
[~2022-07-26] VITALS: Ht 188 cm; Wt 118.2 kg
[2022-07-26 18:07] LABS: GLUCOSE,POINT OF CARE 93 MG/DL (70-110)
[2022-07-26 20:08] VITALS: BP 131/81
== END 2022-07-26 20:44 | disposition home or self-care (01) ==
LOC: EMS 17:31
DX: R20.2 Paresthesia of skin (principal); E11.9 Type 2 diabetes mellitus without complications; I10 Essential (primary) hypertension; J45.909 Unspecified asthma, uncomplicated
CPT/HCPCS: 82962; 99282

== ENCOUNTER 2022-09-13 18:11 | Emergency (ER) | payer OTHER ==
[~2022-09-13] VITALS: Ht 188 cm; Wt 90.9 kg
[~2022-09-13 18:11] MED LIST changes: -METR500 PO; -MONT-40 PO
[2022-09-13 18:43] LABS: BASOPHILS % (AUTO) 0.5 % (0.0-2.0); EOSINOPHILS % (AUTO) 4.5 % (1.0-6.0); HEMATOCRIT 40.4 % (41-53); HEMOGLOBIN 13.2 g/dL (13.5-17.5); LYMPHOCYTES # (AUTO) 2.2 K/uL (1.0-4.8); LYMPHOCYTES % (AUTO) 41.4 % (22.0-44.0); MEAN CORPUSCULAR HEMOGLOBIN 31.7 pg (26.0-34.0); MEAN CORPUSCULAR HGB CONC 32.8 G/dL (31.0-37.0); MEAN CORPUSCULAR VOLUME 97 fL (80-100); MONOCYTES # (AUTO) 0.5 K/uL (0.1-1.0); MONOCYTES % (AUTO) 8.9 % (2.0-9.0); NEUTROPHILS # (AUTO) 2.4 K/uL (1.8-7.7); NEUTROPHILS % (AUTO) 44.7 % (40.0-70.0); PLATELET COUNT (AUTO) 216 K/uL (150-450); RED BLOOD CELL COUNT(AUTO) 4.17 MIL/uL (4.50-5.90); RED CELL DISTRIBUTION WIDTH 13.3 % (11.5-14.5)
[2022-09-13 18:54] LABS: ANION GAP 6 mmol/L (8-16); CARBON DIOXIDE 29 mmol/L (22-29); CHLORIDE 103 mmol/L (98-107); CREATININE 1.29 mg/dL (0.60-1.30); GLUCOSE,RANDOM 96 mg/dL (70-110); POTASSIUM 3.9 mmol/L (3.5-5.1); SODIUM SERUM 138 mmol/L (136-145); UREA NITROGEN, BLOOD 14 mg/dL (7-18)
[2022-09-13 18:55] LABS: CALCIUM, TOTAL 8.8 mg/dL (8.8-10.5); GLOMERULAR FILTR. RATE CALC > 60 mL/min (>60)
[2022-09-13 19:00] LABS: ALANINE AMINOTRANSFERASE 29 U/L (12-78); ALBUMIN 3.3 g/dL (3.4-5.0); ALKALINE PHOSPHATASE 56 U/L (46-116); ASPARTATE AMINOTRANSFERASE 22 U/L (15-37); BILIRUBIN,TOTAL 0.4 mg/dL (0.1-1.0)
[2022-09-13 22:00] VITALS: BP 130/88
[2022-09-13] MEDS ORDERED: IBUP-2070 PO (22:30)
[2022-09-13] MEDS ORDERED: IBUPROFEN 600 MG TABLET PO ONE (22:30)
== END 2022-09-13 22:45 | disposition home or self-care (01) ==
LOC: EMS 18:11
DX: R07.89 Other chest pain (principal); M79.18 Myalgia, other site; E11.9 Type 2 diabetes mellitus without complications; I10 Essential (primary) hypertension; J45.909 Unspecified asthma, uncomplicated
CPT/HCPCS: 71045; 80053; 84484; 85025; 93005; 99285; 36415-L1; 36415-TC

== ENCOUNTER 2022-11-17 17:14 | Emergency (ER) | payer OTHER ==
[~2022-11-17] VITALS: Ht 188 cm; Wt 122.7 kg
[~2022-11-17 17:14] MED LIST changes: -ACET-66 PO; -ALBU8.5H8 IH; -CYCL10TA16 PO; -FLUT1AER4 IH; -GABA-1181 PO; +IBUP-1492 PO
[2022-11-17] MEDS ORDERED: MethylPREDNISolone SOD SUCC 125 MG/2 ML VIAL IM ONE (17:30)
[2022-11-17] MEDS ORDERED: ALBUTEROL SULFATE 2.5 MG/0.5 ML NEB SOLUTION NEB ONE ×2 (17:30→19:00)
[2022-11-17] MEDS ORDERED: IPRATROPIUM BROMIDE 0.5 MG/2.5 ML NEB SOLUTION NEB ONE (17:30)
[2022-11-17 18:39] LABS: BASOPHILS % (AUTO) 1.5 % (0.0-2.0); EOSINOPHILS % (AUTO) 6.3 % (1.0-6.0); HEMATOCRIT 41.5 % (41-53); HEMOGLOBIN 13.7 g/dL (13.5-17.5); LYMPHOCYTES # (AUTO) 1.6 K/uL (1.0-4.8); LYMPHOCYTES % (AUTO) 38.4 % (22.0-44.0); MEAN CORPUSCULAR HGB CONC 33.1 G/dL (31.0-37.0); MEAN CORPUSCULAR VOLUME 97 fL (80-100); MONOCYTES # (AUTO) 0.4 K/uL (0.1-1.0); MONOCYTES % (AUTO) 9.6 % (2.0-9.0); NEUTROPHILS # (AUTO) 1.8 K/uL (1.8-7.7); NEUTROPHILS % (AUTO) 44.2 % (40.0-70.0); PLATELET COUNT (AUTO) 223 K/uL (150-450); RED BLOOD CELL COUNT(AUTO) 4.29 MIL/uL (4.50-5.90); RED CELL DISTRIBUTION WIDTH 13.6 % (11.5-14.5)
[2022-11-17 18:51] LABS: ANION GAP 8 mmol/L (8-16); CARBON DIOXIDE 26 mmol/L (22-29); CHLORIDE 103 mmol/L (98-107); CREATININE 1.18 mg/dL (0.60-1.30); GLUCOSE,RANDOM 87 mg/dL (70-110); POTASSIUM 4.6 mmol/L (3.5-5.1); SODIUM SERUM 137 mmol/L (136-145); UREA NITROGEN, BLOOD 14 mg/dL (7-18)
[2022-11-17 18:52] LABS: GLOMERULAR FILTR. RATE CALC > 60 mL/min (>60)
[2022-11-17 18:56] LABS: ALANINE AMINOTRANSFERASE 32 U/L (12-78); ALBUMIN 3.7 g/dL (3.4-5.0); ALKALINE PHOSPHATASE 68 U/L (46-116); ASPARTATE AMINOTRANSFERASE 23 U/L (15-37); BILIRUBIN,TOTAL 0.6 mg/dL (0.1-1.0); TOTAL PROTEIN, SERUM 7.7 g/dL (6.4-8.2)
[2022-11-17] MEDS ORDERED: ALBUTEROL SULFATE 5 MG/ML 20 ML NEB SOLN [BULK] NEB ONE (19:00)
[2022-11-17] MEDS ORDERED: ALBU8HFA IH (20:00)
[2022-11-17] MEDS ORDERED: GUAIFDM PO (20:00)
[2022-11-17] MEDS ORDERED: PRED-554 PO (20:00)
[2022-11-17] MEDS ORDERED: BECL10.62 IH (20:00)
[2022-11-17] MEDS ORDERED: AUD NEB (20:00)
[2022-11-17 20:12] VITALS: BP 145/93
== END 2022-11-17 20:13 | disposition home or self-care (01) ==
LOC: EMS 17:19
DX: J45.901 Unspecified asthma with (acute) exacerbation (principal); E11.40 Type 2 diabetes mellitus with diabetic neuropathy, unspecified; I10 Essential (primary) hypertension
CPT/HCPCS: 99285; 71045; 80053; 82962; 84484; 85025; 36415; 94640; 96372; 94644; J2930; J7613

== ENCOUNTER 2022-12-10 17:36 | Emergency (ER) | payer OTHER ==
[~2022-12-10] VITALS: Ht 188 cm; Wt 118.2 kg
[~2022-12-10 17:36] MED LIST changes: +ALBU8HFA IH; +BECL10.62 IH; +GUAIFDM PO; +PRED-554 PO
[2022-12-10 20:00] LABS: COVID AG,FIA SOURCE NASOPHARYNGEAL
[2022-12-10 20:20] LABS: INFLUENZA TYPE A NEGATIVE FOR TYPE A (NEGATIVE); INFLUENZA TYPE B NEGATIVE FOR TYPE B (NEGATIVE)
[2022-12-10] MEDS ORDERED: ALBUTEROL SULFATE 2.5 MG/0.5 ML NEB SOLUTION NEB ONE (20:30)
[2022-12-10] MEDS ORDERED: IPRATROPIUM BROMIDE 0.5 MG/2.5 ML NEB SOLUTION NEB ONE (20:30)
[2022-12-10] MEDS ORDERED: PredniSONE 20 MG TABLET PO ONE (20:30)
[2022-12-10] MEDS ORDERED: PRED-554 PO (21:07)
[2022-12-10] MEDS ORDERED: AZIT250T9 PO (21:08)
[2022-12-10 21:25] VITALS: BP 133/78
== END 2022-12-10 21:37 | disposition home or self-care (01) ==
LOC: EMS 17:52
DX: J06.9 Acute upper respiratory infection, unspecified (principal); J45.909 Unspecified asthma, uncomplicated; E11.9 Type 2 diabetes mellitus without complications; I10 Essential (primary) hypertension; G62.9 Polyneuropathy, unspecified; Z98.890 Other specified postprocedural states; Z20.822 Contact with and (suspected) exposure to COVID-19
CPT/HCPCS: 99284; 71046; 87426; 82962; 87804; 94640; J7512; J7613

== ENCOUNTER 2023-04-06 19:54 | Emergency (ER) | payer OTHER ==
[~2023-04-06] VITALS: Ht 188 cm; Wt 109.1 kg
[~2023-04-06 19:54] MED LIST changes: +ALBU18HF12 IH; -ALBU8HFA IH
[2023-04-06] MEDS ORDERED: KETOROLAC TROMETHAMINE 60 MG/2 ML VIAL IM ONE (21:00)
[2023-04-06] MEDS ORDERED: DEXAMETHASONE SOD PHOS 4 MG/ML 5 ML VIAL IM ONE (21:00)
[2023-04-06] MEDS ORDERED: HYDROGEN PEROXIDE 118 ML SOLUTION ONE (21:12)
[2023-04-06] MEDS ORDERED: DIPH25TA20 PO (21:19)
[2023-04-06] MEDS ORDERED: HYDR-4072 PO (21:19)
[2023-04-06] MEDS ORDERED: HYDR30CR3 TP (21:19)
[2023-04-06] MEDS ORDERED: PRED-554 PO (21:19)
[2023-04-06] MEDS ORDERED: IBUP-1554 PO (21:19)
[2023-04-06] MEDS ORDERED: DICL100G51 TP (22:01)
[2023-04-06] MEDS ORDERED: TRI2515C TP (22:06)
[2023-04-06 22:12] VITALS: BP 145/91
== END 2023-04-06 22:14 | disposition home or self-care (01) ==
LOC: EMS 19:55
DX: S86.912A Strain of unspecified muscle(s) and tendon(s) at lower leg level, left leg, initial encounter (principal); L25.2 Unspecified contact dermatitis due to dyes; J45.909 Unspecified asthma, uncomplicated; M17.12 Unilateral primary osteoarthritis, left knee; E11.9 Type 2 diabetes mellitus without complications; I10 Essential (primary) hypertension; Z98.890 Other specified postprocedural states; X58.XXXA Exposure to other specified factors, initial encounter; Y93.89 Activity, other specified; Y92.89 Other specified places as the place of occurrence of the external cause; Y99.8 Other external cause status
CPT/HCPCS: 99284; 29505; 82962; 73562; 96372; J1100; J1885

== ENCOUNTER 2023-06-13 13:37 | Emergency (ER) | payer OTHER ==
[~2023-06-13] VITALS: Ht 188 cm; Wt 113.6 kg
[~2023-06-13 13:37] MED LIST changes: +ALBU2.5V39 NEB; -AUD NEB; +DICL100G60 TP; +DIPH25CA85 PO; +HYDR-4072 PO; +HYDR30CR3 TP; -IBUP-1492 PO; +IBUP-1554 PO; +METH4TAB3 PO; -PRED-554 PO; +TRI2515C TP
[2023-06-13 13:41] VITALS: TEMP 98.3
[2023-06-13 14:11] LABS: GLUCOMETER DEV NAME(LOC) ERT.5
[2023-06-13] MEDS ORDERED: BACITRACIN 0.9 GM PACKET OINTMENT TP ONE (15:00)
[2023-06-13] MEDS ORDERED: LIDOCAINE 1% 10 ML VIAL ID ONE (15:00)
[2023-06-13 16:20] VITALS: BP 124/71; PULSE 98; RESP 16
== END 2023-06-13 17:12 | disposition home or self-care (01) ==
LOC: EMS 13:37
DX: S61.411A Laceration without foreign body of right hand, initial encounter (principal); J45.909 Unspecified asthma, uncomplicated; E11.40 Type 2 diabetes mellitus with diabetic neuropathy, unspecified; I10 Essential (primary) hypertension; Z98.890 Other specified postprocedural states; W26.0XXA Contact with knife, initial encounter; Y93.89 Activity, other specified; Y92.89 Other specified places as the place of occurrence of the external cause; Y99.8 Other external cause status
CPT/HCPCS: 99283; 82962; 73562; 12001; J3490

== ENCOUNTER 2023-06-15 14:59 | Emergency (ER) | payer OTHER ==
[~2023-06-15] VITALS: Ht 188 cm; Wt 113.6 kg
[2023-06-15 15:02] VITALS: BP 119/59; PULSE 102; RESP 16; TEMP 98.3
== END 2023-06-15 15:48 | disposition home or self-care (01) ==
LOC: EMS 14:59
DX: S61.411D Laceration without foreign body of right hand, subsequent encounter (principal); J45.909 Unspecified asthma, uncomplicated; I10 Essential (primary) hypertension; E11.40 Type 2 diabetes mellitus with diabetic neuropathy, unspecified; Z98.890 Other specified postprocedural states; X58.XXXD Exposure to other specified factors, subsequent encounter
CPT/HCPCS: 99281; Z7502

== ENCOUNTER 2023-06-24 10:49 | Emergency (ER) | payer OTHER ==
[~2023-06-24] VITALS: Ht 188 cm; Wt 113.6 kg
[2023-06-24 10:50] VITALS: BP 137/96; PULSE 92; RESP 18; TEMP 97.9
== END 2023-06-24 12:00 | disposition home or self-care (01) ==
LOC: EMS 10:49
DX: S60.921D Unspecified superficial injury of right hand, subsequent encounter (principal); J45.909 Unspecified asthma, uncomplicated; E11.40 Type 2 diabetes mellitus with diabetic neuropathy, unspecified; I10 Essential (primary) hypertension; Z48.02 Encounter for removal of sutures; Z98.890 Other specified postprocedural states; X58.XXXD Exposure to other specified factors, subsequent encounter
CPT/HCPCS: 99281; Z7502

== ENCOUNTER 2023-12-01 11:20 | Emergency (ER) | payer OTHER ==
[~2023-12-01] VITALS: Ht 188 cm; Wt 109.1 kg
[2023-12-01 11:25] VITALS: BP 139/80; PULSE 84; RESP 18; TEMP 97.9
[2023-12-01] MEDS ORDERED: TRIA15CR49 TP (13:13)
[2023-12-01] MEDS ORDERED: HYDR-4527 PO (13:13)
[2023-12-01] MEDS ORDERED: MONT-40 PO (13:13)
[2023-12-01] MEDS ORDERED: OMEP20CA12 PO (13:13)
[2023-12-01] MEDS ORDERED: ALBU0.8311 NEB (13:13)
[2023-12-01] MEDS ORDERED: IBUP-2077 PO (13:13)
[2023-12-01] MEDS ORDERED: DiphenhydrAMINE HCL 25 MG CAPSULE PO ONE (13:15)
[2023-12-01] MEDS ORDERED: MethylPREDNISolone SOD SUCC 125 MG/2 ML VIAL IM ONE (13:15)
[2023-12-01] MEDS ORDERED: DIPH50CA37 PO (13:20)
[2023-12-01] MEDS ORDERED: HYDR30CR39 TP (13:20)
[2023-12-01] MEDS ORDERED: PRED-554 PO (13:20)
[2023-12-01] MEDS ORDERED: CLOB15CR10 TP (13:20)
[2023-12-01] MEDS ORDERED: PERM60CR19 TP (13:20)
== END 2023-12-01 13:33 | disposition home or self-care (01) ==
LOC: EMS 11:20
DX: L25.9 Unspecified contact dermatitis, unspecified cause (principal); J45.909 Unspecified asthma, uncomplicated; I10 Essential (primary) hypertension; E11.40 Type 2 diabetes mellitus with diabetic neuropathy, unspecified; Z98.890 Other specified postprocedural states
CPT/HCPCS: 99283; 96372; J2930

== ENCOUNTER 2024-01-28 10:23 | Emergency (ER) | payer OTHER ==
[~2024-01-28] VITALS: Ht 188 cm; Wt 112.3 kg
[~2024-01-28 10:23] MED LIST changes: +ALBU0.8311 NEB; -ALBU2.5V39 NEB; +CLOB15CR10 TP; -DIPH25CA85 PO; +DIPH50CA37 PO; -GUAIFDM PO; -HYDR-4072 PO; +HYDR-4527 PO; -HYDR30CR3 TP; +HYDR30CR39 TP; -IBUP-1554 PO; +IBUP-2077 PO; -METH4TAB3 PO; +MONT-40 PO; +OMEP20CA12 PO; +PERM60CR19 TP; +PRED-554 PO; -TRI2515C TP; +TRIA15CR49 TP
[2024-01-28 10:28] VITALS: TEMP 98.5
[2024-01-28] MEDS: MethylPREDNISolone SOD SUCC 125 MG/2 ML VIAL IVP ONE (11:31)
[2024-01-28 11:35] LABS: BASOPHILS % (AUTO) 0.6 % (0.0-2.0); EOSINOPHILS % (AUTO) 6.9 % (1.0-6.0); HEMATOCRIT 41.5 % (41-53); HEMOGLOBIN 13.7 g/dL (13.5-17.5); LYMPHOCYTES % (AUTO) 28.8 % (22.0-44.0); MEAN CORPUSCULAR HEMOGLOBIN 31.8 pg (26.0-34.0); MEAN CORPUSCULAR HGB CONC 33.1 G/dL (31.0-37.0); MEAN CORPUSCULAR VOLUME 96 fL (80-100); MONOCYTES # (AUTO) 0.5 K/uL (0.1-1.0); MONOCYTES % (AUTO) 14.4 % (2.0-9.0); NEUTROPHILS # (AUTO) 1.7 K/uL (1.8-7.7); NEUTROPHILS % (AUTO) 49.3 % (40.0-70.0); PLATELET COUNT (AUTO) 193 K/uL (150-450); RED BLOOD CELL COUNT(AUTO) 4.33 MIL/uL (4.50-5.90); RED CELL DISTRIBUTION WIDTH 13.9 % (11.5-14.5); WHITE BLOOD COUNT (AUTO) 3.4 K/uL (4.5-11.0)
[2024-01-28 11:46] LABS: ANION GAP 6 mmol/L (8-16); CALCIUM, TOTAL 8.3 mg/dL (8.8-10.5); CARBON DIOXIDE 26 mmol/L (22-29); CHLORIDE 103 mmol/L (98-107); CREATININE 1.07 mg/dL (0.60-1.30); GLOMERULAR FILTR. RATE CALC > 60 mL/min (>60); GLUCOSE,RANDOM 83 mg/dL (70-110); POTASSIUM 4.2 mmol/L (3.5-5.1); SODIUM SERUM 135 mmol/L (136-145); UREA NITROGEN, BLOOD 18 mg/dL (7-18)
[2024-01-28 11:52] VITALS: PULSE 79; RESP 24; O2SAT 95
[2024-01-28 11:53] LABS: TROPONIN I-HIGH SENSITIVITY 7 ng/L (<76)
[2024-01-28] MEDS: ALBUTEROL SULFATE 2.5 MG/0.5 ML NEB SOLUTION NEB ONE (11:54)
[2024-01-28] MEDS: IPRATROPIUM BROMIDE 0.5 MG/2.5 ML NEB SOLUTION NEB ONE ×2 (11:54→12:34)
[2024-01-28 12:01] LABS: ALANINE AMINOTRANSFERASE 31 U/L (12-78); ALBUMIN 3.3 g/dL (3.4-5.0); ALKALINE PHOSPHATASE 66 U/L (46-116); ASPARTATE AMINOTRANSFERASE 23 U/L (15-37); BILIRUBIN,TOTAL 0.4 mg/dL (0.1-1.0); TOTAL PROTEIN, SERUM 7.5 g/dL (6.4-8.2)
[2024-01-28 12:04] VITALS: PULSE 78; RESP 24; O2SAT 99
[2024-01-28] MEDS ORDERED: 0.9% SODIUM CHLORIDE 5 ML NEB SOLUTION NEB ONE (12:30)
[2024-01-28 12:34] VITALS: PULSE 80; RESP 20; O2SAT 92
[2024-01-28] MEDS: ALBUTEROL SULFATE 2.5 MG/0.5 ML 5 ML NEB SOLUTION NEB ONE (12:34)
[2024-01-28 13:40] VITALS: PULSE 78; RESP 20; O2SAT 99
[2024-01-28] MEDS ORDERED: ALBU0.8311 NEB (13:54)
[2024-01-28 14:00] VITALS: BP 135/85; PULSE 79; RESP 18
== END 2024-01-28 14:26 | disposition home or self-care (01) ==
LOC: EMS 10:23
DX: J45.901 Unspecified asthma with (acute) exacerbation (principal); E11.9 Type 2 diabetes mellitus without complications; I10 Essential (primary) hypertension; Z98.890 Other specified postprocedural states
CPT/HCPCS: 99285; 96374; 71045; 80053; 84484; 85025; 36415; 94644; 93005; J2930; Q9967; 94640; J7613

== ENCOUNTER 2024-03-24 01:15 | Emergency (ER) | payer OTHER ==
[~2024-03-24] VITALS: Ht 188 cm; Wt 111.4 kg
[2024-03-24 01:21] VITALS: BP 158/91; PULSE 85; RESP 16; TEMP 98.1
[2024-03-24] MEDS ORDERED: LISI-892 PO (01:40)
[2024-03-24] MEDS ORDERED: IBUP-1554 PO (01:40)
[2024-03-24] MEDS ORDERED: METF-1211 PO (01:40)
[2024-03-24] MEDS ORDERED: TRAM50TA5 PO (01:40)
[2024-03-24] MEDS ORDERED: HYDR-4527 PO (01:40)
[2024-03-24] MEDS: DiphenhydrAMINE HCL 25 MG CAPSULE PO ONE (02:05)
[2024-03-24] MEDS: IBUPROFEN 600 MG TABLET PO ONE (02:05)
[2024-03-24] MEDS: TraMADol HCL 50 MG TABLET PO ONE (02:05)
[2024-03-24] MEDS: MethylPREDNISolone SOD SUCC 125 MG/2 ML VIAL IM ONE (02:06)
== END 2024-03-24 02:18 | disposition home or self-care (01) ==
LOC: EMS 01:16
DX: S86.812A Strain of other muscle(s) and tendon(s) at lower leg level, left leg, initial encounter (principal); J45.909 Unspecified asthma, uncomplicated; E11.40 Type 2 diabetes mellitus with diabetic neuropathy, unspecified; Z98.890 Other specified postprocedural states; X58.XXXA Exposure to other specified factors, initial encounter; Y93.89 Activity, other specified; Y92.89 Other specified places as the place of occurrence of the external cause; Y99.8 Other external cause status
CPT/HCPCS: 99284; 82962; 96372; J2919

== ENCOUNTER 2024-04-08 06:15 | Emergency (ER) | payer OTHER ==
[~2024-04-08] VITALS: Ht 189.2 cm; Wt 113.0 kg
[~2024-04-08 06:15] MED LIST changes: +IBUP-1554 PO; +TRAM50TA5 PO
[2024-04-08 06:19] VITALS: TEMP 97.5
[2024-04-08 06:40] LABS: GLUCOMETER DEV NAME(LOC) ER.7; GLUCOSE,POINT OF CARE 99 MG/DL (70-110)
[2024-04-08] MEDS ORDERED: VALA500T PO (06:49)
[2024-04-08 07:26] VITALS: BP 135/79; PULSE 80; RESP 16
== END 2024-04-08 07:38 | disposition home or self-care (01) ==
LOC: EMS 06:15
DX: N48.29 Other inflammatory disorders of penis (principal); B00.9 Herpesviral infection, unspecified; M17.12 Unilateral primary osteoarthritis, left knee; E11.65 Type 2 diabetes mellitus with hyperglycemia; J44.9 Chronic obstructive pulmonary disease, unspecified; I10 Essential (primary) hypertension; Z98.890 Other specified postprocedural states
CPT/HCPCS: 82962; 99282

== ENCOUNTER 2024-05-03 06:51 | Emergency (ER) | payer OTHER ==
[~2024-05-03] VITALS: Ht 188 cm; Wt 110.0 kg
[~2024-05-03 06:51] MED LIST changes: +VALA500T PO
[2024-05-03 07:20] LABS: GLUCOMETER DEV NAME(LOC) ERT.5; GLUCOSE,POINT OF CARE 130 MG/DL (70-110)
[2024-05-03] MEDS ORDERED: PRED-554 PO (07:29)
[2024-05-03] MEDS ORDERED: HYDR30CR39 TP (07:29)
[2024-05-03] MEDS: MethylPREDNISolone SOD SUCC 125 MG/2 ML VIAL IM ONE (07:56)
[2024-05-03 08:12] VITALS: BP 114/76; PULSE 100; RESP 22; TEMP 98.3
== END 2024-05-03 08:00 | disposition home or self-care (01) ==
LOC: EMS 06:52
DX: L30.9 Dermatitis, unspecified (principal); J45.909 Unspecified asthma, uncomplicated; E11.9 Type 2 diabetes mellitus without complications; I10 Essential (primary) hypertension
CPT/HCPCS: 99283; 96372; 82962; J2919

== ENCOUNTER 2024-06-01 05:32 | Emergency (ER) | payer OTHER ==
[~2024-06-01] VITALS: Ht 188 cm; Wt 125.0 kg
[2024-06-01 05:34] VITALS: TEMP 98.1
[2024-06-01 06:02] VITALS: BP 119/93; PULSE 92; RESP 20
[2024-06-01] MEDS ORDERED: HYDR50CA7 PO (06:43)
[2024-06-01] MEDS: MethylPREDNISolone SOD SUCC 125 MG/2 ML VIAL IM ONE (06:43)
== END 2024-06-01 06:55 | disposition home or self-care (01) ==
LOC: EMS 05:33
DX: L30.9 Dermatitis, unspecified (principal); L29.8 Other pruritus; E11.9 Type 2 diabetes mellitus without complications; J45.909 Unspecified asthma, uncomplicated; I10 Essential (primary) hypertension
CPT/HCPCS: 99283; 96372; J2919

== ENCOUNTER 2024-10-07 15:10 | Emergency (ER) | payer OTHER ==
[~2024-10-07] VITALS: Ht 188 cm; Wt 90.9 kg
[2024-10-07] VITALS (7 sets, daily range): BP systolic 130; BP diastolic 90; PULSE 93–105; RESP 18–24; TEMP 98; O2SAT 93–99
[~2024-10-07 15:10] MED LIST changes: +HYDR50CA7 PO
[2024-10-07] MEDS ORDERED: LISI5TAB21 PO (15:39)
[2024-10-07 16:06] LABS: BASOPHILS % (AUTO) 0.6 % (0.0-2.0); EOSINOPHILS % (AUTO) 7.8 % (1.0-6.0); HEMATOCRIT 42.1 % (41-53); LYMPHOCYTES # (AUTO) 1.3 K/uL (1.0-4.8); LYMPHOCYTES % (AUTO) 28.3 % (22.0-44.0); MEAN CORPUSCULAR HEMOGLOBIN 32.2 pg (26.0-34.0); MEAN CORPUSCULAR HGB CONC 33.1 G/dL (31.0-37.0); MEAN CORPUSCULAR VOLUME 97 fL (80-100); MONOCYTES # (AUTO) 0.5 K/uL (0.1-1.0); MONOCYTES % (AUTO) 10.1 % (2.0-9.0); NEUTROPHILS # (AUTO) 2.4 K/uL (1.8-7.7); NEUTROPHILS % (AUTO) 53.2 % (40.0-70.0); PLATELET COUNT (AUTO) 201 K/uL (150-450); RED BLOOD CELL COUNT(AUTO) 4.34 MIL/uL (4.50-5.90); RED CELL DISTRIBUTION WIDTH 13.9 % (11.5-14.5); WHITE BLOOD COUNT (AUTO) 4.5 K/uL (4.5-11.0)
[2024-10-07 16:15] LABS: ANION GAP 4 mmol/L (8-16); CARBON DIOXIDE 31 mmol/L (22-29); CHLORIDE 100 mmol/L (98-107); CREATININE 1.27 mg/dL (0.60-1.30); GLOMERULAR FILTR. RATE CALC > 60 mL/min (>60); GLUCOSE,RANDOM 125 mg/dL (70-110); POTASSIUM 4.4 mmol/L (3.5-5.1); SODIUM SERUM 135 mmol/L (136-145); UREA NITROGEN, BLOOD 11 mg/dL (7-18)
[2024-10-07 16:23] LABS: B-TYPE NATRIURETIC PEPTIDE 7 pg/mL (0-100)
[2024-10-07 16:24] LABS: TROPONIN I-HIGH SENSITIVITY 6 ng/L (<76)
[2024-10-07 16:48] LABS: APPEARANCE,URINE CLEAR (CLEAR); BILIRUBIN,URINE NEGATIVE (NEGATIVE); COLOR,URINE LIGHT YELLOW (YELLOW); GLUCOSE, URINE (UA) NEGATIVE (NEGATIVE); KETONES,URINE NEGATIVE (NEGATIVE); LEUKOCYTE ESTERASE ,URINE NEGATIVE (NEGATIVE); NITRATE,URINE NEGATIVE (NEGATIVE); OCCULT BLOOD,URINE NEGATIVE (NEGATIVE); PH,URINE 6.5 (5.0-8.0); PROTEIN,URINE 100-200,SEE CONFIRM mg/dL (NEGATIVE); SPECIFIC GRAVITIY, URINE 1.014 (1.003-1.030); UROBILINOGEN,URINE <=1.0 mg/dL (<=1.0)
[2024-10-07] MEDS: IPRATROPIUM BROMIDE 0.5 MG/2.5 ML NEB SOLUTION NEB ONE ×2 (16:48→18:41)
[2024-10-07] MEDS: ALBUTEROL SULFATE 2.5 MG/0.5 ML NEB SOLUTION NEB ONE ×2 (16:48→18:41)
[2024-10-07 17:01] LABS: SULFOSALICYLIC ACID,URINE 1+ (Negative)
[2024-10-07] MEDS: PredniSONE 20 MG TABLET PO ONE (17:04)
[2024-10-07 17:07] LABS: BACTERIA,URINE Rare /HPF (None Seen); RBC,URINE 0-2 /HPF (0-2); SQUAMOUS EPITHELIAL CELL,UR Few /LPF (None Seen); WBC,URINE 0-2 /HPF (0-5)
[2024-10-07] MEDS ORDERED: PRED-554 PO (19:38)
[2024-10-07] MEDS ORDERED: ALBU18HF12 IH (19:39)
[2024-10-07] MEDS ORDERED: ALBU0.8311 NEB (19:39)
== END 2024-10-07 20:07 | disposition home or self-care (01) ==
LOC: EMS 15:11
DX: J45.901 Unspecified asthma with (acute) exacerbation (principal); E11.9 Type 2 diabetes mellitus without complications; I10 Essential (primary) hypertension; Z79.899 Other long term (current) drug therapy
CPT/HCPCS: 99285; 71045; 80048; 81001; 83880; 84484; 85025; 36415; 94640; J7512; 81002; 81003; J7613

== ENCOUNTER 2024-10-24 04:30 | Emergency (ER) | payer OTHER ==
[~2024-10-24] VITALS: Ht 190.5 cm; Wt 115.9 kg
[~2024-10-24 04:30] MED LIST changes: -BECL10.62 IH; -CLOB15CR10 TP; -DICL100G60 TP; -DIPH50CA37 PO; -HYDR-4527 PO; -HYDR30CR39 TP; -HYDR50CA7 PO; -IBUP-1554 PO; -IBUP-2077 PO; -LISI-892 PO; +LISI5TAB21 PO; -MONT-40 PO; -OMEP20CA12 PO; -PERM60CR19 TP; -TRAM50TA5 PO; -TRIA15CR49 TP; -VALA500T PO
[2024-10-24 04:38] VITALS: TEMP 98.9
[2024-10-24 05:34] LABS: BASOPHILS % (AUTO) 0.3 % (0.0-2.0); EOSINOPHILS % (AUTO) 2.4 % (1.0-6.0); HEMATOCRIT 40.4 % (41-53); HEMOGLOBIN 13.8 g/dL (13.5-17.5); LYMPHOCYTES # (AUTO) 1.2 K/uL (1.0-4.8); LYMPHOCYTES % (AUTO) 15.3 % (22.0-44.0); MEAN CORPUSCULAR HEMOGLOBIN 32.7 pg (26.0-34.0); MEAN CORPUSCULAR HGB CONC 34.1 G/dL (31.0-37.0); MEAN CORPUSCULAR VOLUME 96 fL (80-100); MONOCYTES # (AUTO) 0.8 K/uL (0.1-1.0); MONOCYTES % (AUTO) 9.5 % (2.0-9.0); NEUTROPHILS # (AUTO) 5.8 K/uL (1.8-7.7); NEUTROPHILS % (AUTO) 72.5 % (40.0-70.0); PLATELET COUNT (AUTO) 197 K/uL (150-450); RED BLOOD CELL COUNT(AUTO) 4.21 MIL/uL (4.50-5.90); RED CELL DISTRIBUTION WIDTH 13.6 % (11.5-14.5)
[2024-10-24 05:36] LABS: ANION GAP 7 mmol/L (8-16); CALCIUM, TOTAL 8.9 mg/dL (8.8-10.5); CARBON DIOXIDE 28 mmol/L (22-29); CHLORIDE 99 mmol/L (98-107); CREATININE 1.29 mg/dL (0.60-1.30); GLOMERULAR FILTR. RATE CALC > 60 mL/min (>60); GLUCOSE,RANDOM 133 mg/dL (70-110); SODIUM SERUM 134 mmol/L (136-145); UREA NITROGEN, BLOOD 17 mg/dL (7-18)
[2024-10-24 05:41] LABS: ALANINE AMINOTRANSFERASE 28 U/L (12-78); ALBUMIN 3.1 g/dL (3.4-5.0); ALKALINE PHOSPHATASE 73 U/L (46-116); ASPARTATE AMINOTRANSFERASE 17 U/L (15-37); BILIRUBIN,TOTAL 0.5 mg/dL (0.1-1.0); TOTAL PROTEIN, SERUM 7.6 g/dL (6.4-8.2)
[2024-10-24 05:48] LABS: TROPONIN I-HIGH SENSITIVITY 4 ng/L (<76)
[2024-10-24 05:52] LABS: B-TYPE NATRIURETIC PEPTIDE < 5 pg/mL (0-100)
[2024-10-24] MEDS: METHOCARBAMOL 500 MG TABLET PO ONE (06:45)
[2024-10-24] MEDS: KETOROLAC TROMETHAMINE 60 MG/2 ML VIAL IM ONE (06:45)
[2024-10-24 08:00] VITALS: BP 140/86; PULSE 86; RESP 16; O2SAT 98
[2024-10-24 08:00] LABS: TROPONIN I-HIGH SENSITIVITY 4 ng/L (<76)
[2024-10-24] MEDS ORDERED: IBUP-1492 PO (08:08)
[2024-10-24] MEDS ORDERED: PRED-554 PO (08:08)
[2024-10-24] MEDS ORDERED: ALBU18HF12 IH (08:09)
[2024-10-24] MEDS ORDERED: METH-659 PO (08:09)
== END 2024-10-24 08:23 | disposition home or self-care (01) ==
LOC: EMS 04:30
DX: M79.18 Myalgia, other site (principal); J45.909 Unspecified asthma, uncomplicated; R07.89 Other chest pain; E11.9 Type 2 diabetes mellitus without complications; I10 Essential (primary) hypertension; Z79.52 Long term (current) use of systemic steroids; Z79.899 Other long term (current) drug therapy
CPT/HCPCS: 99285; 71045; 80048; 80076; 83880; 84484; 85025; 36415; 93005; 96372; J1885

== ENCOUNTER 2024-10-28 20:42 | Emergency (ER) | payer OTHER ==
[~2024-10-28] VITALS: Ht 189.2 cm; Wt 118.2 kg
[~2024-10-28 20:42] MED LIST changes: +IBUP-1492 PO; +METH-659 PO
[2024-10-28 21:04] VITALS: TEMP 98.6
[2024-10-28 21:25] LABS: GLUCOMETER DEV NAME(LOC) ERT.6; GLUCOSE,POINT OF CARE 140 MG/DL (70-110)
[2024-10-28] MEDS: BACITRACIN 28 GM OINTMENT TP ONE (22:42)
[2024-10-28] MEDS: PredniSONE 20 MG TABLET PO ONE (22:42)
[2024-10-28] MEDS ORDERED: PRED-554 PO (22:44)
[2024-10-28 22:46] VITALS: BP 125/75; PULSE 90; RESP 18; O2SAT 96
== END 2024-10-28 22:50 | disposition home or self-care (01) ==
LOC: EMS 20:42
DX: T16.1XXA Foreign body in right ear, initial encounter (principal); J45.909 Unspecified asthma, uncomplicated; E11.9 Type 2 diabetes mellitus without complications; I10 Essential (primary) hypertension; Z79.52 Long term (current) use of systemic steroids; Z79.899 Other long term (current) drug therapy; W44.8XXA Other foreign body entering into or through a natural orifice, initial encounter; Y93.89 Activity, other specified; Y92.89 Other specified places as the place of occurrence of the external cause; Y99.8 Other external cause status
CPT/HCPCS: 99284; 82962; J7512; 99283

== ENCOUNTER 2024-11-27 05:30 | Emergency (ER) | payer OTHER ==
[~2024-11-27] VITALS: Ht 188 cm; Wt 110.9 kg
[2024-11-27 05:33] VITALS: BP 129/81; PULSE 92; RESP 18; TEMP 98.2; O2SAT 100
[2024-11-27] MEDS: IBUPROFEN 400 MG TABLET PO ONE (06:45)
[2024-11-27] MEDS: MethylPREDNISolone SOD SUCC 125 MG/2 ML VIAL IM ONE (06:45)
[2024-11-27] MEDS: DiphenhydrAMINE HCL 25 MG CAPSULE PO ONE (06:45)
[2024-11-27] MEDS: ACETAMINOPHEN 325 MG TABLET PO ONE (06:45)
== END 2024-11-27 07:03 | disposition home or self-care (01) ==
LOC: EMS 05:31
DX: L04.9 Acute lymphadenitis, unspecified (principal); E11.40 Type 2 diabetes mellitus with diabetic neuropathy, unspecified; I10 Essential (primary) hypertension; J45.909 Unspecified asthma, uncomplicated; Z79.52 Long term (current) use of systemic steroids; Z79.899 Other long term (current) drug therapy
CPT/HCPCS: 99284; 96372; J2919

== ENCOUNTER 2024-12-01 06:43 | Emergency (ER) | payer OTHER ==
[~2024-12-01] VITALS: Ht 188 cm; Wt 110.9 kg
[2024-12-01 06:57] VITALS: TEMP 97.9
[2024-12-01] MEDS ORDERED: PRED-554 PO (07:28)
[2024-12-01] MEDS ORDERED: HYDR59LO7 TP (07:28)
[2024-12-01] MEDS ORDERED: CLOT10SO TP (07:28)
[2024-12-01] MEDS ORDERED: DIPH50CA37 PO (07:28)
[2024-12-01] MEDS: MethylPREDNISolone SOD SUCC 125 MG/2 ML VIAL IM ONE (07:45)
[2024-12-01] MEDS: DiphenhydrAMINE HCL 25 MG CAPSULE PO ONE (07:45)
[2024-12-01 08:02] VITALS: BP 154/103; PULSE 65; RESP 18; O2SAT 99
== END 2024-12-01 08:04 | disposition home or self-care (01) ==
LOC: EMS 06:44
DX: B35.0 Tinea barbae and tinea capitis (principal); J45.909 Unspecified asthma, uncomplicated; E11.9 Type 2 diabetes mellitus without complications; I10 Essential (primary) hypertension; Z79.52 Long term (current) use of systemic steroids; Z79.899 Other long term (current) drug therapy
CPT/HCPCS: 99283; 96372; J2919

== ENCOUNTER 2024-12-22 13:31 | Emergency (ER) | payer OTHER ==
[~2024-12-22] VITALS: Ht 193 cm; Wt 111.4 kg
[~2024-12-22 13:31] MED LIST changes: +CLOT10SO TP; +DIPH50CA37 PO; +HYDR59LO7 TP
[2024-12-22 13:43] VITALS: TEMP 99.2
[2024-12-22 13:45] LABS: COVID AG,FIA SOURCE NASAL SWAB
[2024-12-22 14:14] LABS: SARS-COV2 (COVID) ANTIGEN,FIA Negative (Negative)
[2024-12-22 14:15] LABS: INFLUENZA TYPE A NEGATIVE FOR TYPE A (NEGATIVE); INFLUENZA TYPE B NEGATIVE FOR TYPE B (NEGATIVE)
[2024-12-22] MEDS: ACETAMINOPHEN 500 MG TABLET PO ONE (15:25)
[2024-12-22 15:45] VITALS: BP 128/74
[2024-12-22] MEDS ORDERED: ACET-3385 PO (16:41)
[2024-12-22] MEDS ORDERED: IBUP-1492 PO (16:41)
[2024-12-22 16:53] VITALS: PULSE 94; RESP 18; O2SAT 99
[2024-12-22] MEDS: ALBUTEROL SULFATE HFA 90 MCG/PUFF 8 GM INHALER IH ONE (16:53)
[2024-12-22] MEDS: PredniSONE 20 MG TABLET PO ONE (17:07)
== END 2024-12-22 17:10 | disposition home or self-care (01) ==
LOC: EMS 13:31
DX: B34.9 Viral infection, unspecified (principal); J45.909 Unspecified asthma, uncomplicated; E11.9 Type 2 diabetes mellitus without complications; I10 Essential (primary) hypertension; Z79.52 Long term (current) use of systemic steroids; Z79.899 Other long term (current) drug therapy; Z20.822 Contact with and (suspected) exposure to COVID-19
CPT/HCPCS: 99283; 87426; 87804; 94640; 82962; J7512; J3535

== ENCOUNTER 2025-02-02 03:37 | Emergency (ER) | payer OTHER ==
[~2025-02-02] VITALS: Ht 189.2 cm; Wt 107.7 kg
[~2025-02-02 03:37] MED LIST changes: +ACET-3385 PO
[2025-02-02 03:49] VITALS: BP 155/78; PULSE 106; RESP 20; TEMP 98.3; O2SAT 96
[2025-02-02] MEDS: MethylPREDNISolone SOD SUCC 125 MG/2 ML VIAL IM ONE (05:26)
[2025-02-02] MEDS: FAMOTIDINE 20 MG TABLET PO ONE (05:26)
== END 2025-02-02 05:51 | disposition home or self-care (01) ==
LOC: EMS 03:37
DX: R21 Rash and other nonspecific skin eruption (principal); E11.9 Type 2 diabetes mellitus without complications; I10 Essential (primary) hypertension; J45.909 Unspecified asthma, uncomplicated; Z79.52 Long term (current) use of systemic steroids; Z79.899 Other long term (current) drug therapy
CPT/HCPCS: 99283; 82962; 96372; J2919

== ENCOUNTER 2025-02-17 05:18 | Emergency (ER) | payer OTHER ==
[~2025-02-17] VITALS: Ht 188 cm; Wt 109.1 kg
[2025-02-17 05:32] VITALS: BP 125/87; PULSE 78; RESP 18; TEMP 97.9; O2SAT 95
[2025-02-17] MEDS: DiphenhydrAMINE HCL 25 MG CAPSULE PO ONE (06:52)
[2025-02-17] MEDS: DEXAMETHASONE SOD PHOS 4 MG/ML 5 ML VIAL IM ONE (06:52)
[2025-02-17] MEDS ORDERED: PRED-554 PO (10:45)
== END 2025-02-17 07:07 | disposition home or self-care (01) ==
LOC: EMS 05:20
DX: L30.9 Dermatitis, unspecified (principal); J45.909 Unspecified asthma, uncomplicated; E11.9 Type 2 diabetes mellitus without complications; I10 Essential (primary) hypertension; Z79.52 Long term (current) use of systemic steroids; Z79.899 Other long term (current) drug therapy
CPT/HCPCS: 99283; 96372; J1100

== ENCOUNTER 2025-05-08 02:34 | Emergency (ER) | payer OTHER ==
[~2025-05-08] VITALS: Ht 188 cm; Wt 109.1 kg
[2025-05-08 03:20] LABS: BASOPHILS % (AUTO) 1.1 % (0.0-2.0); EOSINOPHILS % (AUTO) 7.7 % (1.0-6.0); HEMATOCRIT 37.9 % (41-53); HEMOGLOBIN 12.9 g/dL (13.5-17.5); LYMPHOCYTES # (AUTO) 1.7 K/uL (1.0-4.8); LYMPHOCYTES % (AUTO) 32.7 % (22.0-44.0); MEAN CORPUSCULAR HEMOGLOBIN 32.2 pg (26.0-34.0); MEAN CORPUSCULAR HGB CONC 34.1 G/dL (31.0-37.0); MEAN CORPUSCULAR VOLUME 94 fL (80-100); MONOCYTES # (AUTO) 0.5 K/uL (0.1-1.0); MONOCYTES % (AUTO) 9.4 % (2.0-9.0); NEUTROPHILS # (AUTO) 2.5 K/uL (1.8-7.7); NEUTROPHILS % (AUTO) 49.1 % (40.0-70.0); PLATELET COUNT (AUTO) 208 K/uL (150-450); RED BLOOD CELL COUNT(AUTO) 4.01 MIL/uL (4.50-5.90); RED CELL DISTRIBUTION WIDTH 14.6 % (11.5-14.5); WHITE BLOOD COUNT (AUTO) 5.1 K/uL (4.5-11.0)
[2025-05-08 03:30] VITALS: TEMP 97.3
[2025-05-08 03:30] LABS: ANION GAP 8 mmol/L (8-16); CARBON DIOXIDE 29 mmol/L (22-29); CHLORIDE 103 mmol/L (98-107); CREATININE 1.18 mg/dL (0.60-1.30); GLOMERULAR FILTR. RATE CALC > 60 mL/min (>60); GLUCOSE,RANDOM 115 mg/dL (70-110); POTASSIUM 4.3 mmol/L (3.5-5.1); SODIUM SERUM 140 mmol/L (136-145); UREA NITROGEN, BLOOD 13 mg/dL (7-18)
[2025-05-08 03:34] LABS: ALANINE AMINOTRANSFERASE 31 U/L (12-78); ALBUMIN 3.4 g/dL (3.4-5.0); ALKALINE PHOSPHATASE 64 U/L (46-116); ASPARTATE AMINOTRANSFERASE 25 U/L (15-37); BILIRUBIN,TOTAL 0.4 mg/dL (0.1-1.0); TOTAL PROTEIN, SERUM 7.2 g/dL (6.4-8.2)
[2025-05-08 03:38] LABS: TROPONIN I-HIGH SENSITIVITY 8 ng/L (<76)
[2025-05-08 03:40] LABS: B-TYPE NATRIURETIC PEPTIDE < 5 pg/mL (0-100)
[2025-05-08] MEDS: ALBUTEROL SULFATE 2.5 MG/0.5 ML NEB SOLUTION NEB ONE (04:26)
[2025-05-08] MEDS: IPRATROPIUM BROMIDE 0.5 MG/2.5 ML NEB SOLUTION NEB ONE (04:26)
[2025-05-08] MEDS: PredniSONE 20 MG TABLET PO ONE (04:31)
[2025-05-08 05:30] VITALS: BP 135/76; PULSE 74; RESP 21; O2SAT 97
[2025-05-08] MEDS ORDERED: ALBUTEROL SULFATE 2.5 MG/0.5 ML NEB SOLUTION NEB PRN (05:30)
[2025-05-08] MEDS ORDERED: ONDANSETRON HCL 4 MG/2 ML VIAL IVP PRN (05:30)
[2025-05-08] MEDS ORDERED: ACETAMINOPHEN 325 MG TABLET PO PRN (05:30)
[2025-05-08] MEDS ORDERED: PRED-554 PO (05:33)
[2025-05-08] MEDS ORDERED: ALBU18HF12 IH (05:33)
[2025-05-08] MEDS ORDERED: HEPARIN SODIUM,PORCINE 5,000 UNITS/ML VIAL SQ SCH (08:00)
[2025-05-08] MEDS ORDERED: DOCUSATE SODIUM 100 MG CAPSULE PO SCH (09:00)
[2025-05-08] MEDS ORDERED: FAMOTIDINE 20 MG TABLET PO SCH (09:00)
== END 2025-05-08 06:33 | disposition home or self-care (01) ==
LOC: EMS 02:34
DX: J45.909 Unspecified asthma, uncomplicated (principal); E11.9 Type 2 diabetes mellitus without complications; I10 Essential (primary) hypertension; Z98.890 Other specified postprocedural states; Z79.899 Other long term (current) drug therapy; Z79.52 Long term (current) use of systemic steroids
CPT/HCPCS: 99285; 71045; 80048; 80076; 83880; 84484; 85025; 36415; 94640; 93005; J7512; J7613

== ENCOUNTER 2025-05-24 08:23 | Emergency (ER) | payer OTHER ==
[2025-05-24] VITALS (8 sets, daily range): BP systolic 145; BP diastolic 83; PULSE 87–93; RESP 20; TEMP 97.5; O2SAT 93–99
[~2025-05-24] VITALS: Ht 189.2 cm; Wt 107.7 kg
[2025-05-24 08:51] LABS: GLUCOMETER DEV NAME(LOC) ER.7; GLUCOSE,POINT OF CARE 116 MG/DL (70-110)
[2025-05-24 09:20] LABS: PLATELET COUNT (AUTO) 204 K/uL (150-450); RED BLOOD CELL COUNT(AUTO) 4.18 MIL/uL (4.50-5.90); RED CELL DISTRIBUTION WIDTH 14.4 % (11.5-14.5); WHITE BLOOD COUNT (AUTO) 5.2 K/uL (4.5-11.0)
[2025-05-24 09:20] LABS: COVID AG,FIA SOURCE NASAL SWAB
[2025-05-24 09:28] LABS: CALCIUM, TOTAL 8.1 mg/dL (8.8-10.5); CREATININE 1.49 mg/dL (0.60-1.30); GLOMERULAR FILTR. RATE CALC 58.0 mL/min (>60); GLUCOSE,RANDOM 109.0 mg/dL (70-110); SODIUM SERUM 140.0 mmol/L (136-145); UREA NITROGEN, BLOOD 24.0 mg/dL (7-18)
[2025-05-24] MEDS: ALBUTEROL SULFATE 2.5 MG/0.5 ML NEB SOLUTION NEB ONE ×3 (09:30→12:17)
[2025-05-24] MEDS: IPRATROPIUM BROMIDE 0.5 MG/2.5 ML NEB SOLUTION NEB ONE ×3 (09:30→12:16)
[2025-05-24 09:44] LABS: SARS-COV2 (COVID) ANTIGEN,FIA Negative (Negative)
[2025-05-24 09:46] LABS: INFLUENZA TYPE A NEGATIVE FOR TYPE A (NEGATIVE); INFLUENZA TYPE B NEGATIVE FOR TYPE B (NEGATIVE)
[2025-05-24] MEDS: CefTRIAXone 1 GM/DEXTROSE 50 ML IV ONE (12:16)
[2025-05-24] MEDS: AZITHROMYCIN 500 MG/NS 250 ML IV ONE (12:17)
[2025-05-24] MEDS ORDERED: ALBU0.8311 NEB (12:26)
[2025-05-24] MEDS: ALBUTEROL SULFATE HFA 90 MCG/PUFF 8 GM INHALER IH ONE (12:30)
== END 2025-05-24 13:12 | disposition left against medical advice (07) ==
LOC: EMS 08:25
DX: J45.901 Unspecified asthma with (acute) exacerbation (principal); J98.4 Other disorders of lung; I10 Essential (primary) hypertension; E11.9 Type 2 diabetes mellitus without complications; Z98.890 Other specified postprocedural states; Z79.52 Long term (current) use of systemic steroids; Z79.899 Other long term (current) drug therapy; Z20.822 Contact with and (suspected) exposure to COVID-19
CPT/HCPCS: 99285; 96365; 71045; 87426; 80048; 82962; 83880; 85025; 87804; 36415; 94640; 96368; J2919; J0456; J0696; J3535; J7613

== ENCOUNTER 2025-06-01 19:38 | Emergency (ER) | payer OTHER ==
[~2025-06-01] VITALS: Ht 189.2 cm; Wt 107.7 kg
[2025-06-01 19:39] VITALS: BP 127/84; TEMP 98.1; O2SAT 98
[2025-06-01 20:00] LABS: GLUCOMETER DEV NAME(LOC) ER.7; GLUCOSE,POINT OF CARE 106 MG/DL (70-110)
[2025-06-01] MEDS: KETOROLAC TROMETHAMINE 30 MG/ML VIAL IM ONE (22:44)
[2025-06-01] MEDS: ACETAMINOPHEN 500 MG TABLET PO ONE (22:45)
[2025-06-01] MEDS: LIDOCAINE 5% TRANSDERMAL PATCH TD ONE (22:46)
[2025-06-01] MEDS: ALBUTEROL SULFATE 2.5 MG/0.5 ML NEB SOLUTION NEB ONE (23:04)
[2025-06-01] MEDS: IPRATROPIUM BROMIDE 0.5 MG/2.5 ML NEB SOLUTION NEB ONE (23:04)
[2025-06-01 23:05] VITALS: PULSE 83; RESP 18; O2SAT 98
[2025-06-01 23:35] VITALS: PULSE 88; RESP 18; O2SAT 99
[2025-06-02] MEDS ORDERED: ALBU18HF12 IH (01:19)
[2025-06-02] MEDS ORDERED: METH-812 PO (01:19)
== END 2025-06-02 02:04 | disposition home or self-care (01) ==
LOC: EMS 19:40
DX: J44.89 Other specified chronic obstructive pulmonary disease (principal); M54.50 Low back pain, unspecified; E11.9 Type 2 diabetes mellitus without complications; I10 Essential (primary) hypertension; Z88.0 Allergy status to penicillin; Z79.52 Long term (current) use of systemic steroids; Z79.899 Other long term (current) drug therapy
CPT/HCPCS: 99284; 82962; 94640; 96372; J1885; J8540

== ENCOUNTER 2025-07-03 05:47 | Emergency (ER) | payer OTHER ==
[~2025-07-03] VITALS: Ht 188 cm; Wt 111.4 kg
[~2025-07-03 05:47] MED LIST changes: +METH-812 PO
[2025-07-03 06:02] VITALS: TEMP 97.7
[2025-07-03 06:22] VITALS: BP 151/99; PULSE 82; RESP 16; O2SAT 98
[2025-07-03] MEDS ORDERED: DIPH25CA85 PO (06:37)
== END 2025-07-03 06:47 | disposition home or self-care (01) ==
LOC: EMS 05:47
DX: L25.9 Unspecified contact dermatitis, unspecified cause (principal); J44.89 Other specified chronic obstructive pulmonary disease; I10 Essential (primary) hypertension; E11.9 Type 2 diabetes mellitus without complications; Z98.890 Other specified postprocedural states; Z88.0 Allergy status to penicillin; Z79.52 Long term (current) use of systemic steroids; Z79.899 Other long term (current) drug therapy
CPT/HCPCS: 99283; J7512

== ENCOUNTER 2025-09-26 22:52 | Emergency (ER) | payer OTHER ==
[~2025-09-26] VITALS: Ht 188 cm; Wt 107.3 kg
[~2025-09-26 22:52] MED LIST changes: +DIPH25CA85 PO
[2025-09-26 22:56] VITALS: BP 117/75; PULSE 87; RESP 14; TEMP 97.9; O2SAT 98
[2025-09-27 00:31] LABS: GLUCOMETER DEV NAME(LOC) ERT.7; GLUCOSE,POINT OF CARE 99 MG/DL (70-110)
[2025-09-27] MEDS ORDERED: CYCL-448 PO (02:51)
== END 2025-09-27 02:58 | disposition home or self-care (01) ==
LOC: EMS 22:52
DX: M54.50 Low back pain, unspecified (principal); E11.40 Type 2 diabetes mellitus with diabetic neuropathy, unspecified; I10 Essential (primary) hypertension; J44.89 Other specified chronic obstructive pulmonary disease; Z98.890 Other specified postprocedural states; Z79.52 Long term (current) use of systemic steroids; Z88.0 Allergy status to penicillin; Z79.899 Other long term (current) drug therapy; V49.9XXA Car occupant (driver) (passenger) injured in unspecified traffic accident, initial encounter; Y93.89 Activity, other specified; Y92.410 Unspecified street and highway as the place of occurrence of the external cause; Y99.8 Other external cause status
CPT/HCPCS: 72100; 82962; 99283

== ENCOUNTER 2025-10-24 23:47 | Emergency (ER) | payer OTHER ==
[~2025-10-24] VITALS: Ht 188 cm; Wt 108.2 kg
[~2025-10-24 23:47] MED LIST changes: +CYCL-448 PO
[2025-10-24 23:50] VITALS: BP 153/96; TEMP 97.2
[2025-10-25 00:20] VITALS: PULSE 101; RESP 22; O2SAT 95
[2025-10-25] MEDS: ALBUTEROL SULFATE 2.5 MG/0.5 ML NEB SOLUTION NEB ONE (00:20)
[2025-10-25] MEDS: IPRATROPIUM BROMIDE 0.5 MG/2.5 ML NEB SOLUTION NEB ONE ×2 (00:20→00:48)
[2025-10-25 00:22] LABS: PLATELET COUNT (AUTO) 181 K/uL (150-450); RED BLOOD CELL COUNT(AUTO) 4.28 MIL/uL (4.50-5.90); RED CELL DISTRIBUTION WIDTH 14.4 % (11.5-14.5); WHITE BLOOD COUNT (AUTO) 5.0 K/uL (4.5-11.0)
[2025-10-25] MEDS ORDERED: ALBUTEROL SULFATE 2.5 MG/0.5 ML NEB SOLUTION NEB ONE (00:30)
[2025-10-25 00:32] LABS: CALCIUM, TOTAL 8.6 mg/dL (8.8-10.5); CREATININE 1.06 mg/dL (0.60-1.30); GLOMERULAR FILTR. RATE CALC > 60 mL/min (>60); GLUCOSE,RANDOM 113 mg/dL (70-110); SODIUM SERUM 139 mmol/L (136-145); UREA NITROGEN, BLOOD 14 mg/dL (7-18)
[2025-10-25 00:35] VITALS: PULSE 98; RESP 20; O2SAT 98
[2025-10-25 00:46] LABS: COVID AG,FIA SOURCE NASAL SWAB
[2025-10-25] MEDS ORDERED: 0.9% SODIUM CHLORIDE 15 ML NEB SOLUTION NEB ONE (00:46)
[2025-10-25] MEDS: ALBUTEROL SULFATE 2.5 MG/0.5 ML 5 ML NEB SOLUTION NEB ONE (00:48)
[2025-10-25 00:51] VITALS: PULSE 91; RESP 20; O2SAT 94
[2025-10-25 00:53] LABS: TROPONIN I-HIGH SENSITIVITY 6 ng/L (<76)
[2025-10-25 01:05] LABS: INFLUENZA TYPE A NEGATIVE FOR TYPE A (NEGATIVE); INFLUENZA TYPE B NEGATIVE FOR TYPE B (NEGATIVE)
[2025-10-25 01:05] LABS: SARS-COV2 (COVID) ANTIGEN,FIA Negative (Negative)
[2025-10-25 01:50] VITALS: PULSE 90; RESP 20; O2SAT 98
[2025-10-25] MEDS ORDERED: ALBU0.8311 NEB (02:16)
== END 2025-10-25 02:57 | disposition home or self-care (01) ==
LOC: EMS 10-25 00:30
DX: J45.901 Unspecified asthma with (acute) exacerbation (principal); J44.1 Chronic obstructive pulmonary disease with (acute) exacerbation; E11.40 Type 2 diabetes mellitus with diabetic neuropathy, unspecified; I10 Essential (primary) hypertension; Z79.52 Long term (current) use of systemic steroids; Z79.899 Other long term (current) drug therapy; Z88.0 Allergy status to penicillin; Z98.890 Other specified postprocedural states; Z20.822 Contact with and (suspected) exposure to COVID-19
CPT/HCPCS: 71045; 93005; 99285; 87426; 80048; 82962; 83880; 84484; 85025; 85610; 85730; 87040; 87804; 36415; 94640; J7512; 94644; J7613